=== PATIENT | female | born 1965 | race Caucasian/White ===

== ENCOUNTER 2017-04-04 09:47 | Emergency (ER) | payer MEDICARE, MEDICAID ==
--- NOTE | 2017-04-04 10:25 | ER Document Report ---
ED General - General Chief Complaint: Other Stated Complaint: NEEDS PORT FLUSHED Time Seen by Provider: 04/04/17 09:57 Mode of Arrival: Ambulatory Information source: Patient Notes: 51-year-old female who has a port for chronic migraines moved here in September has not had to use it since presents with concerns for wanting her port flushed. Patient states her primary care physician sent her in for it to be evaluated. Patient denies any complaints with it otherwise TRAVEL OUTSIDE OF THE [place] IN LAST 30 DAYS: No - HPI Onset: Just prior to arrival Onset/Duration: Sudden Quality of pain: No pain Severity: None Pain Level: Denies Associated symptoms: None Exacerbated by: Denies Relieved by: Denies Similar symptoms previously: No Recently seen / treated by doctor: No - Related Data Allergies/Adverse Reactions: No Known Allergies Allergy (Unverified 04/04/17 09:52) Past Medical History - Social History Smoking Status: Never Smoker Cigarette use (# per day): No Chew tobacco use (# tins/day): No Smoking Education Provided: No Family History: Reviewed & Not Pertinent Renal/ Medical History: Denies: Hx Peritoneal Dialysis Review of Systems - Review of Systems Notes: REVIEW OF SYSTEMS: CONSTITUTIONAL : Denies fever, chills, or sweats. Denies recent illness. EENT: Denies eye, ear, throat, or mouth pain or symptoms. Denies nasal or sinus congestion or discharge. Denies throat, tongue, or mouth swelling or difficulty swallowing. CARDIOVASCULAR: Denies chest pain. Denies palpitations or racing or irregular heart beat. Denies ankle edema. RESPIRATORY: Denies cough, cold, or chest congestion. Denies shortness of breath, difficulty breathing, or wheezing. GASTROINTESTINAL: Denies abdominal pain or distention. Denies nausea, vomiting , or diarrhea. Denies blood in vomitus, stools, or per rectum. Denies black, tarry stools. Denies constipation. GENITOURINARY: Denies difficulty urinating, painful urination, burning, frequency, blood in urine, or discharge. FEMALE GENITOURINARY: Denies vaginal bleeding, heavy or abnormal periods, irregular periods. Denies vaginal discharge or odor. MUSCULOSKELETAL: Denies back or neck pain or stiffness. Denies joint pain or swelling. SKIN: Denies rash, lesions or sores. HEMATOLOGIC : Denies easy bruising or bleeding. LYMPHATIC: Denies swollen, enlarged glands. NEUROLOGICAL: Denies confusion or altered mental status. Denies passing out or loss of consciousness. Denies dizziness or lightheadedness. Denies headache. Denies weakness or paralysis or loss of use of either side. Denies problems with gait or speech. Denies sensory loss, numbness, or tingling. Denies seizures. PSYCHIATRIC: Denies anxiety or stress. Denies depression, suicidal ideation, or homicidal ideation. ALL OTHER SYSTEMS REVIEWED AND NEGATIVE. PHYSICAL EXAMINATION: GENERAL: Well-appearing, well-nourished and in no acute distress. HEAD: Atraumatic, normocephalic. EYES: Pupils equal round and reactive to light, extraocular movements intact, conjunctiva are normal. ENT: Nares patent, oropharynx clear without exudates. Moist mucous membranes. NECK: Normal range of motion, supple without lymphadenopathy LUNGS: Breath sounds clear to auscultation bilaterally and equal. No wheezes rales or rhonchi. HEART: Regular rate and rhythm without murmurs ABDOMEN: Soft, nontender, nondistended abdomen. No guarding, no rebound. No masses appreciated. Female : deferred Musculoskeletal: Normal range of motion, no pitting or edema. No cyanosis. NEUROLOGICAL: Cranial nerves grossly intact. Normal speech, normal gait. Normal sensory, motor exams PSYCH: Normal mood, normal affect. SKIN: Warm, Dry, normal turgor, no rashes or lesions noted. Port was palpated, and will be accessed Dictation was performed using [employer] voice recognition software Physical Exam - Vital signs Vitals: Temp Pulse Resp BP Pulse Ox 98.6 F 102 H 16 100/57 L 99 04/04/17 09:53 04/04/17 09:53 04/04/17 09:53 04/04/17 09:53 04/04/17 09:53 Course - Re-evaluation Re-evalutation: 04/04/17 10:25 On my evaluation patient has no complaints, I will access port at this time and to flush it 04/04/17 14:23 Port was flushed with no difficulty heparin was placed. It appears patient was here with a family member who is also being seen and decided to check in as well After performing a Medical Screening Examination, I estimate there is LOW risk for OPEN FRACTURE, COMPARTMENT SYNDROME, TENDON RUPTURE, ACUTE NEUROVASCULAR INJURY, or RETAINED FOREIGN BODY, thus I consider the discharge disposition reasonable. Also, there is no evidence or peritonitis, sepsis, or toxicity. I have reevaluated this patient multiple times and no significant life threatening changes are noted. The patient and I have discussed the diagnosis and risks, and we agree with discharging home with close follow-up with the understanding that symptoms and presentations can change. We also discussed returning to the Emergency Department immediately if new or worsening symptoms occur. We have discussed the symptoms which are most concerning (e.g., changing or worsening pain, fever, numbness, weakness, cool or painful digits) that necessitate immediate return. - Vital Signs Vital signs: Temp Pulse Resp BP Pulse Ox 98.2 F 91 20 110/65 98 04/04/17 11:43 04/04/17 11:43 04/04/17 11:43 04/04/17 11:43 04/04/17 11:43 Discharge - Discharge Clinical Impression: Encounter for care related to vascular access port Condition: Stable Disposition: HOME, SELF-CARE Additional Instructions: Follow up with your physician tomorrow for further care or return to the ED IMMEDIATELY if symptoms worsen or new concerns occur. If you cannot afford to follow up with your primary care physician a list of low cost clinics have been provided at the end of your discharge papers as well. Referrals: MARIELLE MORALES MD [Primary Care Provider] - Follow up as needed
[2017-04-04 11:45] VITALS: BP 110/65
== END 2017-04-04 11:50 | disposition home or self-care (01) ==
LOC: ER 09:47
DX: Z43.8 Encounter for attention to other artificial openings (principal)
CPT/HCPCS: 36591; 99283

== ENCOUNTER 2017-04-10 16:50 | Emergency (ER) | payer MEDICARE, MEDICAID ==
[2017-04-10] MEDS ORDERED: METHYLPREDNISOLONE INJ 125 MG/2 ML SDV IV ONE (17:19)
--- NOTE | 2017-04-10 17:20 | ER Document Report ---
ED Medical Screen (RME) - General Chief Complaint: Head Injury Stated Complaint: FACIAL NUMBNESS Time Seen by Provider: 04/10/17 17:10 Mode of Arrival: Wheelchair Information source: Patient TRAVEL OUTSIDE OF THE [place] IN LAST 30 DAYS: No - HPI Patient complains to provider of: Left sided numbness Notes: 04/10/17 17:19 Patient is a 51-year-old female with a history of MS who presents to the emergency room complaining of left-sided numbness that started 3-4 hours prior to arrival in the emergency department, she reports facial numbness, with her friend telling her she had a facial droop, she reports decreased sensation on the left side of the face or left upper and lower extremities - Related Data Allergies/Adverse Reactions: No Known Allergies Allergy (Verified 04/10/17 17:03) Past Medical History - Social History Chew tobacco use (# tins/day): No Frequency of alcohol use: None Drug Abuse: None Neurological Medical History: Reports: Hx Migraine Renal/ Medical History: Denies: Hx Peritoneal Dialysis Surgical Hx: Negative - Immunizations Hx Diphtheria, Pertussis, Tetanus Vaccination: No History of Influenza Vaccine for 04/2017 - 09/2017 Season: No Physical Exam - Vital signs Vitals: Temp Pulse Resp BP Pulse Ox 98.3 F 97 16 110/76 97 04/10/17 17:03 04/10/17 17:03 04/10/17 17:03 04/10/17 17:03 04/10/17 17:03 Course - Vital Signs Vital signs: Temp Pulse Resp BP Pulse Ox 98.3 F 97 16 110/76 97 04/10/17 17:03 04/10/17 17:03 04/10/17 17:03 04/10/17 17:03 04/10/17 17:03
--- NOTE | 2017-04-10 18:08 | RADIOLOGY REPORT (SQ) ---
EXAM DESCRIPTION: CHEST SINGLE VIEW COMPLETED DATE/TIME: 04/10/2017 5:34 pm REASON FOR STUDY: left sided numbness COMPARISON: None. EXAM PARAMETERS: NUMBER OF VIEWS: One view. TECHNIQUE: Single frontal radiographic view of the chest acquired. RADIATION DOSE: NA LIMITATIONS: None. FINDINGS: LUNGS AND PLEURA: No opacities, masses or pneumothorax. No pleural effusion. MEDIASTINUM AND HILAR STRUCTURES: No masses. Contour normal. HEART AND VASCULAR STRUCTURES: Heart normal in size. Normal vasculature. BONES: No acute findings. HARDWARE: Injection port on the left. OTHER: No other significant finding. IMPRESSION: NO ACUTE RADIOGRAPHIC FINDING IN THE CHEST. TECHNICAL DOCUMENTATION: JOB ID: [id number]
--- NOTE | 2017-04-10 18:12 | RADIOLOGY REPORT (SQ) ---
EXAM DESCRIPTION: CT HEAD WITHOUT COMPLETED DATE/TIME: 04/10/2017 5:45 pm REASON FOR STUDY: left sided numbness COMPARISON: None. TECHNIQUE: Axial images acquired through the brain without intravenous contrast. Images reviewed wi th bone, brain and subdural windows. Images stored on PACS. All CT scanners at this facility use dose modulation, iterative reconstruction, and/or weight based d osing when appropriate to reduce radiation dose to as low as reasonably achievable (ALARA). [facility]: Dose Right [facility]: CareDose [facility]: Dose Right [facility]: Teradose 4D [facility]: [employer] RADIATION DOSE: Up-to-date CT equipment and radiation dose reduction techniques were employed. CTDIv ol: 64.6 mGy. DLP: 1034 mGy-cm. mGy. LIMITATIONS: None. FINDINGS: VENTRICLES: Normal size and contour. CEREBRUM: No masses. No hemorrhage. No midline shift. No evidence for acute infarction. Normal gra y/white matter differentiation. No areas of low density in the white matter. CEREBELLUM: No masses. No hemorrhage. No alteration of density. No evidence for acute infarction. EXTRAAXIAL SPACES: No fluid collections. No masses. ORBITS AND GLOBE: No intra- or extraconal masses. Normal contour of globe without masses. CALVARIUM: No fracture. PARANASAL SINUSES: No fluid or mucosal thickening. SOFT TISSUES: No mass or hematoma. OTHER: No other significant finding. IMPRESSION: NORMAL BRAIN CT WITHOUT CONTRAST. EVIDENCE OF ACUTE STROKE: NO. COMMENT: Quality ID # [id number]: Final reports with documentation of one or more dose reduction techniques (e.g., Automated exposure control, adjustment of the mA and/or kV according to patient size, use of iterative reconstruction technique) TECHNICAL DOCUMENTATION: JOB ID: [id number]- All Rights Reserved
[2017-04-10] MEDS ORDERED: PREDNISONE 20 MG TABLET PO ONE (20:27)
--- NOTE | 2017-04-10 20:32 | ER Document Report ---
ED General - General Chief Complaint: Head Injury Stated Complaint: FACIAL NUMBNESS Time Seen by Provider: 04/10/17 17:10 Mode of Arrival: Wheelchair Notes: Patient is a 51-year-old female with a past medical history of multiple sclerosis who presents with 6-7 hours of left-sided weakness and paresthesias. Patient states that this apparently started after she "bumped her head". States that since that time she was felt "tingly" on the left side of her body with associated mild weakness of her upper and lower extremity. Her roommate apparently noted a facial droop earlier today which is now apparently resolved. Patient states that she has had a history of similar symptoms in the past in the setting of MS flares. No recent medication changes. She has not seen her neurologist regarding today's concerns. Nothing improves or worsens her symptoms. She denies any recent infectious symptoms, chest pain, vomiting, headache or fever. TRAVEL OUTSIDE OF THE [place] IN LAST 30 DAYS: No - Related Data Allergies/Adverse Reactions: No Known Allergies Allergy (Verified 04/10/17 17:03) Past Medical History - General Information source: Patient - Social History Smoking Status: Never Smoker Chew tobacco use (# tins/day): No Frequency of alcohol use: None Drug Abuse: None Lives with: Friend Family History: Reviewed & Not Pertinent Neurological Medical History: Reports: Hx Migraine Renal/ Medical History: Denies: Hx Peritoneal Dialysis Surgical Hx: Negative - Immunizations Hx Diphtheria, Pertussis, Tetanus Vaccination: No Review of Systems - Review of Systems Notes: Constitutional: Negative for fever. HENT: Negative for sore throat. Eyes: Negative for visual changes. Cardiovascular: Negative for chest pain. Respiratory: Negative for shortness of breath. Gastrointestinal: Negative for abdominal pain, vomiting or diarrhea. Genitourinary: Negative for dysuria. Musculoskeletal: Negative for back pain. Skin: Negative for rash. Neurological: Negative for headaches, positive for weakness and numbness 10 point ROS negative except as marked above and in HPI. Physical Exam - Vital signs Vitals: Temp Pulse Resp BP Pulse Ox 98.3 F 97 16 110/76 97 04/10/17 17:03 04/10/17 17:03 04/10/17 17:03 04/10/17 17:03 04/10/17 17:03 Interpretation: Normal Notes: PHYSICAL EXAMINATION: GENERAL: Well-appearing, well-nourished and in no acute distress. HEAD: Atraumatic, normocephalic. EYES: Pupils equal round and reactive to light, extraocular movements intact, sclera anicteric, conjunctiva are normal. ENT: nares patent, oropharynx clear without exudates. Moist mucous membranes. NECK: Normal range of motion, supple without lymphadenopathy LUNGS: Breath sounds clear to auscultation bilaterally and equal. No wheezes rales or rhonchi. HEART: Regular rate and rhythm without murmurs ABDOMEN: Soft, nontender, normoactive bowel sounds. No guarding, no rebound. No masses appreciated. EXTREMITIES: Normal range of motion, no pitting or edema. No cyanosis. NEUROLOGICAL: Face symmetric. Tongue protrudes midline. Extraocular motions intact. Pupils are 2 mm and equally reactive. Patient reports decreased sensation on the entirety of the left half of the face. Normal speech, normal gait. 5 out of 5 strength in both the distal and proximal upper and lower extremities bilaterally after encouragement. Sensation is grossly intact throughout the bilateral upper and lower extremities. Finger to nose testing normal. Pronator drift normal. PSYCH: Normal mood, normal affect. SKIN: Warm, Dry, normal turgor, no rashes or lesions noted. Course - Re-evaluation Re-evalutation: 04/10/17 20:27 Patient presents with signs and symptoms most consistent with a possible mild MS flare. On examination patient has no focal neurologic deficits other than to state that she has decreased sensation in the left side of the face and the trigeminal nerve distribution. She has no decreased sensation on point testing and 2 point discrimination in her lower and upper extremities bilaterally. Patient seems to have variable strength differences in her left upper and lower extremities although with appropriate effort she does achieve full 5 out of 5 strength in the biceps and triceps bilaterally as well as distal and proximally bilateral lower extremity's. She is able to ambulate without ataxia or falling. The remainder of her neurologic exam is unremarkable. CT imaging of the head is noted to be unremarkable. I have a very low clinical suspicion for an acute CVA given patient's clinical history and rapid improvement of her symptoms. She states earlier today she apparently did have a possible facial droop although this is not present at time of assessment. Murmurs patient states that she felt that her symptoms on the left were actually worse prior to coming to the hospital and have now mostly resolved. This would also be consistent with acute CVA and alternative diagnostic consideration could be a TIA although this would be inconsistent with her ongoing facial nerve distribution sensory loss and normalization of her upper and lower extremity symptoms. I suspect more likely patient is having an MS flare. She is not a TPA candidate regardless given that she presents after the window for TPA, does not have a has had improvement of her neurologic symptoms since onset, and has a history of an identical presentation in the past as part of her multiple sclerosis. Will start on a course of steroids and recommend close outpatient follow-up with her neurologist. At this time will discharge with return precautions and follow-up recommendations. Verbal discharge instructions given a the bedside and opportunity for questions given. Medication warnings reviewed. Patient is in agreement with this plan and has verbalized understanding of return precautions and the need for primary care follow-up in the next 24-72 hours. - Vital Signs Vital signs: Temp Pulse Resp BP Pulse Ox 97.7 F 94 18 112/81 98 04/10/17 20:51 04/10/17 20:51 04/10/17 20:51 04/10/17 20:51 04/10/17 20:51 - Laboratory Result Diagrams: 04/10/17 20:15 04/10/17 20:15 Laboratory results interpreted by me: 04/10/17 04/10/17 20:15 20:15 RDW 14.6 H Lymphocytes % 7.9 L Monocytes % 13.7 H Potassium 3.1 L Alkaline Phosphatase 132 H Total Protein 6.2 L - Diagnostic Test Radiology reviewed: Image reviewed, Reports reviewed Radiology results interpreted by me: 04/10/17 20:30 CT head: No acute intracranial bleed or mass - EKG Interpretation by Me Additional EKG results interpreted by me: 04/10/17 20:30 Normal sinus rhythm. Rate 95. No ST elevations or depressions. QTC is 483. Discharge - Discharge Clinical Impression: Paresthesias, Multiple sclerosis Condition: Good Disposition: HOME, SELF-CARE Additional Instructions: Your symptoms today appear most likely to be related to a flare of your multiple sclerosis. Please take the steroids as prescribed. Contact your neurologist tomorrow for an urgent appointment. Return to the emergency department immediately if you have worsening of your symptoms, pass out, develop chest pain, or any other symptoms that are worrisome to you. Prescriptions: Prednisone [Deltasone 20 mg Tablet] 3 tab PO DAILY 7 Days tablet Referrals: TYRESE TRACY, CLINICAL TECHNICIAN [Primary Care Provider] - Follow up as needed
[2017-04-10 20:34] LABS: PROTHROMBIN TIME 13.3 SEC (11.4-15.4)
[2017-04-10 20:35] LABS: PARTIAL THROMBOPLASTIN TIME 35.5 SEC (23.5-35.8)
[2017-04-10 20:40] LABS: ABSOLUTE EOSINOPHILS # (AUTO) 0.3 10^3/uL (0.0-0.6); ABSOLUTE LYMPHOCYTES (AUTO) 0.6 10^3/uL (0.5-4.7); ABSOLUTE NEUT (AUTO) 5.2 10^3/uL (1.7-8.2); BASOPHILS % (AUTO) 0.3 % (0-2); EOSINOPHILS % (AUTO) 3.6 % (0-6); HEMATOCRIT 37.8 % (36.0-47.0); HEMOGLOBIN 12.9 g/dL (12.0-15.5); HGB HCT DIFFERENCE 0.9; LYMPHOCYTES % (AUTO) 7.9 % (13-45); MEAN CORPUSCULAR HEMOGLOBIN 28.1 pg (27.0-33.4); MEAN CORPUSCULAR HGB CONC 34.2 g/dL (32.0-36.0); MEAN CORPUSCULAR VOLUME 82 fl (80-97); MONOCYTES % (AUTO) 13.7 % (3-13); RED CELL DISTRIBUTION WIDTH 14.6 % (11.5-14.0); SEGMENTED NEUTROPHILS % (AUTO) 74.5 % (42-78)
[2017-04-10 20:54] VITALS: BP 112/81
[2017-04-10 20:56] LABS: ALANINE AMINOTRANSFERASE 45 U/L (9-52); ALBUMIN 3.7 g/dL (3.5-5.0); ALKALINE PHOSPHATASE 132 U/L (38-126); ANION GAP 10 (5-19); ASPARTATE AMINO TRANSFERASE 28 U/L (14-36); BILIRUBIN,DIRECT 0.4 mg/dL (0.0-0.4); BILIRUBIN,TOTAL 0.6 mg/dL (0.2-1.3); BLOOD UREA NITROGEN 12 mg/dL (7-20); CALCIUM 8.8 mg/dL (8.4-10.2); CARBON DIOXIDE 26 mmol/L (22-30); CHLORIDE 103 mmol/L (98-107); CREATINE KINASE 48 U/L (30-135); CREATININE RESULT 0.77 mg/dL (0.52-1.25); GLUCOSE 75 mg/dL (75-110); SODIUM 138.7 mmol/L (137-145); TOTAL PROTEIN 6.2 g/dL (6.3-8.2)
[2017-04-10 21:06] LABS: CREATINE KINASE MB 0.74 ng/mL (<4.55); POTASSIUM 3.1 mmol/L (3.6-5.0)
[2017-04-10 21:07] LABS: TROPONIN I < 0.012 ng/mL
--- NOTE | 2017-04-11 09:15 | EKG REPORT ---
SEVERITY:- OTHERWISE NORMAL ECG - SINUS RHYTHM BORDERLINE LEFT AXIS DEVIATION : Confirmed by: Ellen Mcdaniels MD 11-Apr-2017 09:14:37
== END 2017-04-10 21:21 | disposition home or self-care (01) ==
LOC: ER 16:50
DX: G35 Multiple sclerosis (principal); R20.2 Paresthesia of skin; R53.1 Weakness
CPT/HCPCS: 93005; 36591; 99285; 36415; 82553; 82550; 85025; 85610; 85730; 80053; 84484; 71010; 70450; 93010; A9270; J7512

== ENCOUNTER 2017-04-18 08:51 | Emergency (ER) | payer MEDICARE, MEDICAID ==
--- NOTE | 2017-04-18 10:02 | ER Document Report ---
ED General - General Chief Complaint: Fall Stated Complaint: FALL NECK PAIN Time Seen by Provider: 04/18/17 09:46 TRAVEL OUTSIDE OF THE [place] IN LAST 30 DAYS: No - HPI Notes: Patient is a 51-year-old female with a history of MS and Diabetes who presents to the ED status post fall prior to arrival. Patient states that her legs became a little shaky and she fell on her butt and that hit her head off of the tile floor. Patient states that this has happened in the past because of her MS and peripheral neuropathy. She has leg shakes almost frequently throughout the week "for a long time" which has been evaluated in the past per patient/ family. Patient states that otherwise she feels well. She denies any loss of consciousness, nausea/vomiting. Patient is currently complaining of a headache and neck pain. Patient states that she was eating and drinking without difficulties as well as urinating and having normal bowel movements prior. No other concerns or complaints. Denies any h/o CAD, OH, CVA, TIA, Seizures, PE, DVT, CA. Denies any fever, changes in behavior/vision/speech/mentation/hearing , URI, sore throat, chest pain, palpitations, syncope, cough, shortness of breath, wheeze, dyspnea, abdominal pain, nausea/vomiting/diarrhea, urinary retention, dysuria, hematuria, loss of control of bowel or bladder, numbness/ tingling, saddle anesthesia, muscle paralysis/weakness, or rash. Denies drug use. - Related Data Allergies/Adverse Reactions: No Known Allergies Allergy (Verified 04/10/17 17:03) Past Medical History - Social History Smoking Status: Never Smoker Chew tobacco use (# tins/day): No Frequency of alcohol use: None Drug Abuse: Bath salts Family History: Reviewed & Not Pertinent Neurological Medical History: Reports: Hx Migraine Endocrine Medical History: Reports: Hx Diabetes Mellitus Type 2 Renal/ Medical History: Denies: Hx Peritoneal Dialysis - Immunizations Hx Diphtheria, Pertussis, Tetanus Vaccination: No Review of Systems - Review of Systems Notes: REVIEW OF SYSTEMS: CONSTITUTIONAL : Denies fever, chills, or sweats. Denies recent illness. EENT: Denies eye, ear, throat, or mouth pain or symptoms. Denies nasal or sinus congestion or discharge. Denies throat, tongue, or mouth swelling or difficulty swallowing. CARDIOVASCULAR: Denies chest pain. Denies palpitations or racing or irregular heart beat. Denies ankle edema. RESPIRATORY: Denies cough, cold, or chest congestion. Denies shortness of breath, difficulty breathing, or wheezing. GASTROINTESTINAL: Denies abdominal pain or distention. Denies nausea, vomiting , or diarrhea. Denies blood in vomitus, stools, or per rectum. Denies black, tarry stools. Denies constipation. GENITOURINARY: Denies difficulty urinating, painful urination, burning, frequency, blood in urine, or discharge. MUSCULOSKELETAL: see hpi SKIN: Denies rash, lesions or sores. NEUROLOGICAL: see hpi. Denies confusion or altered mental status. Denies passing out or loss of consciousness. Denies dizziness or lightheadedness. Denies weakness or paralysis or loss of use of either side. Denies problems with gait or speech. Denies sensory loss, numbness, or tingling. Denies seizures. PSYCHIATRIC: Denies anxiety or stress. Denies depression, suicidal ideation, or homicidal ideation. ALL OTHER SYSTEMS REVIEWED AND NEGATIVE. Dictation was performed using [employer] voice recognition software Physical Exam - Vital signs Vitals: Temp Pulse Resp BP Pulse Ox 97.7 F 88 18 114/67 97 04/18/17 08:59 04/18/17 08:59 04/18/17 08:59 04/18/17 08:59 04/18/17 08:59 Notes: PHYSICAL EXAMINATION: GENERAL: Well-appearing, well-nourished and in no acute distress. A&Ox4 HEAD: Atraumatic, normocephalic. Non-tender. No baxter sign EYES: Pupils equal round and reactive to light, extraocular movements intact, sclera anicteric, conjunctiva are normal. No raccoon eyes/entrapment ENT: EAC clear b/l. TM's intact b/l without erythema, fluid, or perforation. Nares patent and without discharge. oropharynx clear without exudates. No tonsilar hypertrophy or erythema. Moist mucous membranes. No sinus tenderness. No hemotympanum/CSF discharge. NECK: Normal range of motion, supple without lymphadenopathy. In C-collar. + midline tenderness, cannot r/o with NEXUS criteria. Chest: No flail chest. equal rise/fall. Non-tender LUNGS: Breath sounds clear to auscultation bilaterally and equal. No wheezes rales or rhonchi. HEART: Regular rate and rhythm without murmurs, rubs, gallops. ABDOMEN: Soft, nontender, nondistended abdomen. No guarding, no rebound. No masses appreciated. Normal bowel sounds present. No CVA tenderness bilaterally. Musculoskeletal: Ext b/l: FROM to passive/active. Strength 5+/5. No deficits noted. No bony tenderness of extremities. No focal deficits noted. Back: FROM to passive/active. Strength 5+/5. No vertebral point tenderness, stepoffs, or deformities. No other bony tenderness or ecchymosis. SLR negative b/l. Extremities: No cyanosis, clubbing, or edema b/l. Peripheral pulses 2+. Capillary refill less than 2 seconds. NEUROLOGICAL: NIH 0. MMSE intact. Cranial nerves grossly intact. Normal speech. Normal sensory, motor exams. Reflexes 2+ b/l. PAYAM's negative. Pronator drift negative. Heel/romero, finger/nose wnl. PSYCH: Normal mood, normal affect. SKIN: Warm, Dry, normal turgor, no rashes or lesions noted. Course - Re-evaluation Re-evalutation: 04/18/17 11:13 CT head/neck negative for fx/dislocation/bleed EKG obtained Pt feeling well aside from headache and wanting medication for the headache. Reviewed that we don't have to access her port and draw blood at this time as I have a low suspicion for any large abnormalities in her basic blood order(s). Family/Pt states that they want the basic blood drawn and that she has never had issues with her port. They verbalized understanding of the risks/benefits and want the blood work drawn. (2 failed attempts by nursing for normal venous stick). UA pending as well Toradol 30, Benadryl 25, and Compazine 10mg ordered for RAYMUNDO. Pt has bull driver and assistance back to her home/bed to rest thereafter. 04/18/17 13:49 Urine obtained-took a while. Orthostatics + and fluids started RAYMUNDO resolved. Pt ate lunch and is tolerating PO w/o difficulty 04/18/17 15:21 Accucheck 111 Orthostatic recheck now wnl. Patient is an afebrile, well-hydrated, 51-year-old female who presents the ED with cervical strain s/p fall. Vitals are stable. PE is otherwise unremarkable for any focal neurological deficits. CT of the head and neck was unremarkable. EKG unremarkable. CBC, CMP, urinalysis was unremarkable aside from mild hypoglycemia that has since been corrected status post lunch and fluids. Orthostatics are now within normal limits s/p fluids. No new concerns or complaints. Tylenol was given p.o. prior to discharge. Low suspicion for any acute glaucoma, temporal arteritis, meningitis, intracranial hemorrhage, ischemic stroke, or fracture at this time. Patient is aware that her condition can change from initial presentation and that she needs to monitor symptoms closely for any acute changes. Continue monitoring blood pressure at home and take all medications as directed. Recheck with your PCM in 2-3 days. Return to the ED with any worsening/concerning symptoms otherwise as reviewed discharge. Patient is in agreement. No new concerns or complaints. - Vital Signs Vital signs: Temp Pulse Resp BP Pulse Ox 97.7 F 93 18 101/57 L 97 04/18/17 08:59 04/18/17 13:31 04/18/17 08:59 04/18/17 13:31 04/18/17 08:59 - Laboratory Result Diagrams: 04/18/17 11:30 04/18/17 11:30 Laboratory results interpreted by me: 04/18/17 04/18/17 04/18/17 11:30 11:30 13:34 WBC 14.0 H Hgb 11.9 L Hct 35.2 L RDW 15.2 H Seg Neuts % (Manual) 90 H Lymphocytes % (Manual) 5 L Abs Neuts (Manual) 12.6 H Potassium 3.3 L Glucose 61 L Total Protein 5.7 L Albumin 3.4 L Urine Glucose (UA) >=500 H Discharge - Discharge Clinical Impression: Cervical strain Qualifiers: Encounter type: initial encounter Qualified Code(s): S16.1XXA - Strain of muscle, fascia and tendon at neck level, initial encounter Condition: Stable Disposition: HOME, SELF-CARE Instructions: Headache ([facility]), Head Injury Precautions ([facility]), Neck Injury ( Cervical Strain) ([facility]) Additional Instructions: Rest, Ice Tylenol/ibuprofen as needed Light stretches daily Strength exercises as able Moist heat and massage may help F/u with your PCP in 2-3 days for a recheck Return to the ED with any worsening symptoms and/or development of fever, headache, chest pain, palpitations, syncope, shortness of breath, trouble breathing, abdominal pain, n/v/d, blood in stool/urine, loss of control of bowel /bladder, urinary retention, muscle weakness/paralysis, saddle anesthesia, numbness/tingling, or other worsening symptoms that are concerning to you. Referrals: TYRESE TRACY FNP [Primary Care Provider] - 04/20/17 [facility] [Provider Group] - Follow up as needed
--- NOTE | 2017-04-18 10:51 | RADIOLOGY REPORT (SQ) ---
EXAM DESCRIPTION: CT HEAD WITHOUT COMPLETED DATE/TIME: 04/18/2017 10:26 am REASON FOR STUDY: fall, headache, neck pain COMPARISON: None. TECHNIQUE: Axial images acquired through the brain without intravenous contrast. Images reviewed wi th bone, brain and subdural windows. Images stored on PACS. All CT scanners at this facility use dose modulation, iterative reconstruction, and/or weight based d osing when appropriate to reduce radiation dose to as low as reasonably achievable (ALARA). [facility]: Dose Right [facility]: CareDose [facility]: Dose Right [facility]: Teradose 4D [facility]: [employer] RADIATION DOSE: Up-to-date CT equipment and radiation dose reduction techniques were employed. CTDIv ol: 64.6 mGy. DLP: 1163 mGy-cm. mGy. LIMITATIONS: None. FINDINGS: VENTRICLES: Normal size and contour. CEREBRUM: No masses. No hemorrhage. No midline shift. No evidence for acute infarction. Normal gra y/white matter differentiation. No areas of low density in the white matter. CEREBELLUM: No masses. No hemorrhage. No alteration of density. No evidence for acute infarction. EXTRAAXIAL SPACES: No fluid collections. No masses. ORBITS AND GLOBE: No intra- or extraconal masses. Normal contour of globe without masses. CALVARIUM: No fracture. PARANASAL SINUSES: No fluid or mucosal thickening. SOFT TISSUES: No mass or hematoma. OTHER: No other significant finding. IMPRESSION: NORMAL BRAIN CT WITHOUT CONTRAST. EVIDENCE OF ACUTE STROKE: NO. COMMENT: Quality ID # [id number]: Final reports with documentation of one or more dose reduction techniques (e.g., Automated exposure control, adjustment of the mA and/or kV according to patient size, use of iterative reconstruction technique) TECHNICAL DOCUMENTATION: JOB ID: [id number]- All Rights Reserved
--- NOTE | 2017-04-18 10:56 | RADIOLOGY REPORT (SQ) ---
EXAM DESCRIPTION: CT CERVICAL SPINE WITHOUT COMPLETED DATE/TIME: 04/18/2017 10:26 am REASON FOR STUDY: fall, headache, neck pain COMPARISON: None. TECHNIQUE: Axial images acquired through the cervical spine without intravenous contrast. Images re viewed with lung, soft tissue and bone windows. Reconstructed coronal and sagittal MPR images review ed. Images stored on PACS. All CT scanners at this facility use dose modulation, iterative reconstruction, and/or weight based d osing when appropriate to reduce radiation dose to as low as reasonably achievable (ALARA). [facility]: Dose Right [facility]: CareDose [facility]: Dose Right [facility]: Teradose 4D [facility]: [employer] RADIATION DOSE: Up-to-date CT equipment and radiation dose reduction techniques were employed. CTDIv ol: 23.4 mGy. DLP: 500 mGy-cm. mGy. LIMITATIONS: None. FINDINGS: ALIGNMENT: Anatomic. MINERALIZATION: Normal. VERTEBRAL BODIES: No fractures or dislocation. DISCS: Disc spaces are narrowed at C4-5 and C5-6. Anterior osteophytes are present. Posterior osteo phytes are present C5-6. FACETS, LATERAL MASSES, POSTERIOR ELEMENTS: Hypertrophic facet changes are present from C2-C6 more on the left than right. HARDWARE: None in the spine. VISUALIZED RIBS: No fractures. LUNG APICES AND SOFT TISSUES: No significant or acute findings. OTHER: No other significant finding. IMPRESSION: Degenerative disc disease, spondylosis, facet arthropathy with no acute abnormality. TECHNICAL DOCUMENTATION: JOB ID: [id number] Quality ID # [id number]: Final reports with documentation of one or more dose reduction techniques (e.g., Au tomated exposure control, adjustment of the mA and/or kV according to patient size, use of iterative reconstruction technique) 2010 [employer]- All Rights Reserved
[2017-04-18] MEDS ORDERED: KETOROLAC TROMETHAMINE INJ/PF 30 MG/1 ML SDV IV ONE (11:03)
[2017-04-18] MEDS ORDERED: PROCHLORPERAZINE EDISYLATE INJ 10 MG/2 ML VIAL IV ONE (11:12)
[2017-04-18] MEDS ORDERED: DIPHENHYDRAMINE HCL 50 MG/ML VIAL IV ONE (11:12)
[2017-04-18 11:52] LABS: HEMATOCRIT 35.2 % (36.0-47.0); HEMOGLOBIN 11.9 g/dL (12.0-15.5); HGB HCT DIFFERENCE 0.5; MEAN CORPUSCULAR HEMOGLOBIN 27.9 pg (27.0-33.4); MEAN CORPUSCULAR HGB CONC 33.8 g/dL (32.0-36.0); MEAN CORPUSCULAR VOLUME 82 fl (80-97); RED BLOOD COUNT 4.27 10^6/uL (3.72-5.28); RED CELL DISTRIBUTION WIDTH 15.2 % (11.5-14.0)
[2017-04-18 12:14] LABS: BASOPHILS % (MANUAL) 0 % (0-2); EOSINOPHILS % (MANUAL) 0 % (0-6); LYMPHOCYTES % (MANUAL) 5 % (13-45); TOTAL CELLS COUNTED 100
[2017-04-18 12:15] LABS: ANISOCYTOSIS SLIGHT; OVALOCYTES 1+; POIKILOCYTOSIS 1+
[2017-04-18 12:19] LABS: ALANINE AMINOTRANSFERASE 40 U/L (9-52); ALBUMIN 3.4 g/dL (3.5-5.0); ALKALINE PHOSPHATASE 100 U/L (38-126); ANION GAP 10 (5-19); ASPARTATE AMINO TRANSFERASE 21 U/L (14-36); BILIRUBIN,DIRECT 0.4 mg/dL (0.0-0.4); BILIRUBIN,TOTAL 0.5 mg/dL (0.2-1.3); BLOOD UREA NITROGEN 16 mg/dL (7-20); CALCIUM 8.7 mg/dL (8.4-10.2); CARBON DIOXIDE 27 mmol/L (22-30); CHLORIDE 103 mmol/L (98-107); CREATININE RESULT 0.67 mg/dL (0.52-1.25); GLUCOSE 61 mg/dL (75-110); POTASSIUM 3.3 mmol/L (3.6-5.0); SODIUM 140.2 mmol/L (137-145); TOTAL PROTEIN 5.7 g/dL (6.3-8.2)
[2017-04-18] MEDS: NORMAL SALINE 1000 ML 1,000 ML IV PRN ×2 (13:37→15:18)
[2017-04-18 14:19] LABS: APPEARANCE,URINE SLIGHTLY-CLOUDY; BILIRUBIN,URINE NEGATIVE (NEGATIVE); GLUCOSE, URINE >=500 mg/dL (NEGATIVE); KETONES,URINE NEGATIVE (NEGATIVE); LEUKOCYTE ESTERASE,URINE NEGATIVE (NEGATIVE); NITRITE,URINE NEGATIVE (NEGATIVE); PROTEIN,URINE NEGATIVE (NEGATIVE); URINE SPECIFIC GRAVITY 1.027; UROBILINOGEN,URINE NEGATIVE mg/dL (<2.0)
[2017-04-18] MEDS ORDERED: ACETAMINOPHEN 325 MG TABLET PO ONE (15:25)
[2017-04-18 16:09] VITALS: BP 97/71
--- NOTE | 2017-04-18 19:57 | EKG REPORT ---
SEVERITY:- OTHERWISE NORMAL ECG - SINUS RHYTHM BORDERLINE LEFT AXIS DEVIATION : Confirmed by: Connor Rich MD 18-Apr-2017 19:56:12
== END 2017-04-18 16:09 | disposition home or self-care (01) ==
LOC: ER 08:51
DX: S16.1XXA Strain of muscle, fascia and tendon at neck level, initial encounter (principal); W18.39XA Other fall on same level, initial encounter; Y93.89 Activity, other specified; E11.40 Type 2 diabetes mellitus with diabetic neuropathy, unspecified; E11.649 Type 2 diabetes mellitus with hypoglycemia without coma; R51 Headache; M54.2 Cervicalgia; G35 Multiple sclerosis
CPT/HCPCS: 93005; 36591; 99284; 96361; 96374; 96375; 36415; 82962; 85025; 80053; 81001; 70450; 72125; 93010; A9270; J1200; J1885; J0780; J7030

== ENCOUNTER 2017-06-29 14:09 | Emergency (ER) | payer MEDICARE, MEDICAID ==
[2017-06-29] MEDS ORDERED: NORMAL SALINE 1000 ML 1,000 ML IV ONE (14:29)
--- NOTE | 2017-06-29 14:39 | ER Document Report ---
ED General - General Chief Complaint: Weakness Stated Complaint: SYNCOPE Time Seen by Provider: 06/29/17 14:21 Notes: The patient is a 51-year-old female, past medical history MS, chronic back pain , presents with 1 day of feeling tired after she started taking [place] and Percocet. Patient says she also felt slightly lightheaded, but this is a frequent occurrence because she said the medications that she is on. Patient denies focal weakness, numbness, tingling, headache, chest pain, shortness of breath, full loss of consciousness, no back pain, change in bowel or bladder, fevers, rash or neck stiffness. TRAVEL OUTSIDE OF THE [place] IN LAST 30 DAYS: No - Related Data Allergies/Adverse Reactions: No Known Allergies Allergy (Verified 05/13/17 12:13) Past Medical History - General Information source: Patient - Social History Smoking Status: Unknown if Ever Smoked Family History: Reviewed & Not Pertinent Neurological Medical History: Reports: Hx Migraine Endocrine Medical History: Reports: Hx Diabetes Mellitus Type 2 Renal/ Medical History: Denies: Hx Peritoneal Dialysis Past Surgical History: Reports: Hx Abdominal Surgery - gastric bypass, Hx Cholecystectomy, Hx Hysterectomy - Immunizations Hx Diphtheria, Pertussis, Tetanus Vaccination: No Review of Systems - Review of Systems Notes: REVIEW OF SYSTEMS: CONSTITUTIONAL: -fevers, -chills EENT: -eye pain, -difficulty swallowing, -nasal congestion CARDIOVASCULAR: -chest pain, -syncope. RESPIRATORY: +cough, -SOB GASTROINTESTINAL: -abdominal pain, -nausea, -vomiting, -diarrhea GENITOURINARY: -dysuria, -hematuria MUSCULOSKELETAL: -back pain, -neck pain SKIN: -rash or skin lesions. HEMATOLOGIC: -easy bruising or bleeding. LYMPHATIC: -swollen, enlarged glands. NEUROLOGICAL: -altered mental status or loss of consciousness, -headache, - neurologic symptoms, +tiredness PSYCHIATRIC: -anxiety, -depression. ALL OTHER SYSTEMS REVIEWED AND NEGATIVE. Physical Exam - Vital signs Vitals: Resp Pulse Ox 26 H 95 06/29/17 15:35 06/29/17 15:35 - Notes Notes: PHYSICAL EXAMINATION: GENERAL: Well-appearing, well-nourished and in no acute distress. HEAD: Atraumatic, normocephalic. EYES: Pupils equal round and reactive to light, extraocular movements intact, sclera anicteric, conjunctiva are normal. ENT: nares patent, oropharynx clear without exudates. Moist mucous membranes. NECK: Normal range of motion, supple without lymphadenopathy LUNGS: No respiratory distress. Crackles in right lung. HEART: Regular rate and rhythm without murmurs ABDOMEN: Soft, nontender, normoactive bowel sounds. No guarding, no rebound. No masses appreciated. EXTREMITIES: Normal range of motion, no pitting or edema. No cyanosis. NEUROLOGICAL: Cranial nerves grossly intact. Normal speech, normal gait. Normal sensory and motor exams. PSYCH: Normal mood, normal affect. SKIN: Warm, Dry, normal turgor, no rashes or lesions noted. Course - Re-evaluation Re-evalutation: After IV fluids, patient feels much better and her vital signs are completely normal. She is completely asymptomatic. Her chest x-ray shows a right sided pneumonia urine shows a possible UTI. Patient also has a leukocytosis with bandemia, but no fevers or respiratory distress. Will begin doxycycline to help with both the pneumonia and possible UTI. Offered patient admission, but she said that she feels well enough to go home. Given very strict return precautions and she understands. - Vital Signs Vital signs: Temp Pulse Resp BP Pulse Ox 15 97/71 L 95 06/29/17 16:01 06/29/17 16:00 06/29/17 16:01 - Laboratory Result Diagrams: 06/29/17 15:36 06/29/17 15:36 Laboratory results interpreted by me: 06/29/17 06/29/17 06/29/17 15:36 15:36 17:40 WBC 19.1 H MCH 26.2 L RDW 15.3 H Seg Neuts % (Manual) 80 H Band Neutrophils % 8 H Lymphocytes % (Manual) 6 L Abs Neuts (Manual) 16.8 H Potassium 3.2 L AST 46 H Total Protein 6.1 L Urine Glucose (UA) >=500 H Urine Nitrite POSITIVE H - Diagnostic Test Radiology reviewed: Image reviewed, Reports reviewed Radiology results interpreted by me: CXR: Right upper and lower infiltrates. - EKG Interpretation by Me EKG shows normal: Sinus rhythm, [place], Intervals, QRS Complexes, ST-T Waves Rate: Tachycardia Discharge - Discharge Clinical Impression: UTI (urinary tract infection) Qualifiers: Urinary tract infection type: site unspecified Hematuria presence: with hematuria Qualified Code(s): N39.0 - Urinary tract infection, site not specified Leukocytosis Qualifiers: Leukocytosis type: unspecified Qualified Code(s): D72.829 - Elevated white blood cell count, unspecified Pneumonia Qualifiers: Pneumonia type: due to unspecified organism Laterality: right Lung location: unspecified part of lung Qualified Code(s): J18.9 - Pneumonia, unspecified organism Condition: Stable Disposition: HOME, SELF-CARE Additional Instructions: URINARY TRACT INFECTION: Your evaluation indicates that you have a urinary tract infection. This is due to germs growing in the bladder. This is a common problem. This infection usually responds quickly to antibiotics. Your antibiotic should be taken exactly as prescribed. Drink plenty of fluids -- three to four quarts a day. Occasionally, a bladder anesthetic will be prescribed to help stop the feeling of urgency until the antibiotic has a chance to clear the infection. This may cause your urine to be dark orange. Certain urine infections require a culture. If the doctor obtained a culture, the results will be back in two days. You should call to see if a change in treatment is needed. A repeat urinalysis after you finish treatment is often recommended. The physician will let you know if further testing is required. Call the doctor if you develop fever, chills, flank pain, inability to urinate, or blood in the urine. ANTIBIOTIC THERAPY: You have been given an antibiotic prescription. It's important that you take all the medication, unless instructed otherwise by your physician. Failure to complete the entire course can result in relapse of your condition. Common side effects of antibiotics include nausea, intestinal cramping, or diarrhea. Women may develop vaginal yeast infections, and babies can get yeast (thrush) in the mouth following the use of antibiotics. Contact your physician if you develop significant side effects from this medication. Allergy to this antibiotic can result in hives, wheezing, faintness, or itching. If symptoms of allergy occur, stop the medication and call the doctor. CEPHALEXIN: The antibiotic you've been prescribed is a member of the cephalosporin class. This type of antibiotic covers a wide variety of infections, including those of the skin, lungs, and urinary tract. It's useful for staph infections. This antibiotic is slightly similar to the penicillin family. In rare cases , a person who is allergic to penicillin will also be allergic to this medication. If you have had a severe allergic reaction to penicillin, and have not taken this antibiotic since that time, notify your doctor. Antibiotics which cover many germs ("broad spectrum" antibiotics) are more likely to cause diarrhea or "yeast" infections. Women prone to vaginal yeast problems may suffer an attack after taking this antibiotic. In infants, oral thrush (white spots "stuck" on the cheek) or yeast diaper rash may result. See your doctor if these problems occur. Call at once if you develop itching, hives , shortness of breath, or lightheadedness. FOLLOW-UP CARE: If you have been referred to a physician for follow-up care, call the physician s office for an appointment as you were instructed or within the next two days. If you experience worsening or a significant change in your symptoms, notify the physician immediately or return to the Emergency Department at any time for re-evaluation. PNEUMONIA: Your examination indicates that you have pneumonia. This is an infection of the lung tissue, usually caused by bacteria or a virus. Symptoms include cough, fever, shaking chills, chest pain, shortness of breath, and coughing up bloody sputum. Treatment for bacterial pneumonia includes rest, antibiotics for 10 to 14 days, increasing your clear liquid intake, a cool mist humidifier at your bedside, and fever medication. Often, a repeat chest X-ray is performed in a few weeks--even if you feel better--to ascertain whether the infection has completely resolved and no underlying lung problem is present. You should call the physician if you develop persistent vomiting, high fever that does not respond to fever medication, increasing shortness of breath , confusion, or lethargy. Also, failure to improve within two to three days is an indication for re-examination. ANTIBIOTIC THERAPY: You have been given an antibiotic prescription. It's important that you take all the medication, unless instructed otherwise by your physician. Failure to complete the entire course can result in relapse of your condition. Common side effects of antibiotics include nausea, intestinal cramping, or diarrhea. Women may develop vaginal yeast infections, and babies can get yeast (thrush) in the mouth following the use of antibiotics. Contact your physician if you develop significant side effects from this medication. Allergy to this antibiotic can result in hives, wheezing, faintness, or itching. If symptoms of allergy occur, stop the medication and call the doctor. DOXYCYCLINE: Doxycycline (Vibramycin, Doryx) is an antibiotic of the tetracycline family. This type of drug is useful for infections of the respiratory tract and genital tract, and is sometimes used for intestinal infections. Unlike most tetracyclines, doxycycline can be taken with food. It is longer acting, and (usually) less prone to side effects than regular tetracycline. Tetracycline antibiotics can stain immature teeth and SHOULD NOT BE TAKEN BY CHILDREN, NURSING MOTHERS, OR WOMEN. Tetracyclines can make you more prone to sunburn. Abdominal cramping, nausea, and diarrhea are occasional side effects. Women may experience vaginal yeast infections. Call the doctor at once if you develop hives, itching, shortness of breath , or lightheadedness. USE OF ACETAMINOPHEN (Tylenol): Acetaminophen may be taken for pain relief or fever control. It's much safer than aspirin, offering a wider range of "safe" dosages. It is safe during . Some brand names are Tylenol, Panadol, Datril, Anacin 3, Tempra, and Liquiprin. Acetaminophen can be repeated every four hours. The following are maximum recommended dosages: WEIGHT Dose Drops Elixir Chewable( 80mg) (LBS.) drprs=droppers tsp=teaspoon 6 40 mg 0.4 ml (1/2) 6-11 80 mg 0.8 ml (full) tsp 1 tab 12-16 120 mg 1 1/2 drprs 3/4 tsp 1 1/2 tabs 17-23 160 mg 2 drprs 1 tsp 2 tabs 24-30 240 mg 3 drprs 1 1/2 tsp 3 tabs 30-35 320 mg 2 tsp 4 tabs 36-41 360 mg 2 1/4 tsp 4 1/2 tabs 42-47 400 mg 2 1/2 tsp 5 tabs 48-53 480 mg 3 tsp 6 tabs 54-59 520 mg 3 1/4 tsp 6 1/2 tabs 60-64 560 mg 3 1/2 tsp 7 tabs 65-70 600 mg 3 3/4 tsp 7 1/2 tabs 71-76 640 mg 4 tsp 8 tabs 77-82 720 mg 4 1/2 tsp 9 tabs 83-88 800 mg 5 tsp 10 tabs >89 pounds or adults 650 mg to 900 mg Acetaminophen can be repeated every four hours. Maximum dose not to exceed 4000 mg a day. These maximum recommended dosages are slightly higher than the dosages written on the product container, but these dosages are very safe and below the toxic dosage for acetaminophen. FOLLOW-UP CARE: If you have been referred to a physician for follow-up care, call the physician s office for an appointment as you were instructed or within the next two days. If you experience worsening or a significant change in your symptoms, notify the physician immediately or return to the Emergency Department at any time for re-evaluation. Prescriptions: Cephalexin Monohydrate [Keflex 500 mg Capsule] 500 mg PO TID 7 Days capsule Doxycycline Hyclate 100 mg PO BID #14 capsule Referrals: TESFAYE BATES MD [Primary Care Provider] - Follow up as needed
[2017-06-29 16:16] LABS: HEMATOCRIT 37.2 % (36.0-47.0); HEMOGLOBIN 12.1 g/dL (12.0-15.5); HGB HCT DIFFERENCE -0.9; MEAN CORPUSCULAR HEMOGLOBIN 26.2 pg (27.0-33.4); MEAN CORPUSCULAR HGB CONC 32.5 g/dL (32.0-36.0); MEAN CORPUSCULAR VOLUME 81 fl (80-97); RED BLOOD COUNT 4.61 10^6/uL (3.72-5.28); RED CELL DISTRIBUTION WIDTH 15.3 % (11.5-14.0); WHITE BLOOD COUNT 19.1 10^3/uL (4.0-10.5)
[2017-06-29 16:21] LABS: ALANINE AMINOTRANSFERASE 52 U/L (9-52); ALBUMIN 3.8 g/dL (3.5-5.0); ALKALINE PHOSPHATASE 93 U/L (38-126); ANION GAP 11 (5-19); ASPARTATE AMINO TRANSFERASE 46 U/L (14-36); BILIRUBIN,DIRECT 0.2 mg/dL (0.0-0.4); BILIRUBIN,TOTAL 0.4 mg/dL (0.2-1.3); BLOOD UREA NITROGEN 13 mg/dL (7-20); CALCIUM 8.8 mg/dL (8.4-10.2); CARBON DIOXIDE 25 mmol/L (22-30); CHLORIDE 102 mmol/L (98-107); CREATININE RESULT 0.77 mg/dL (0.52-1.25); GLUCOSE 96 mg/dL (75-110); POTASSIUM 3.2 mmol/L (3.6-5.0); SODIUM 137.7 mmol/L (137-145); TOTAL PROTEIN 6.1 g/dL (6.3-8.2)
[2017-06-29 16:29] LABS: BAND NEUTROPHILS % (MANUAL) 8 % (3-5); BASOPHILS % (MANUAL) 0 % (0-2); EOSINOPHILS % (MANUAL) 0 % (0-6); LYMPHOCYTES % (MANUAL) 6 % (13-45); TOTAL CELLS COUNTED 100
[2017-06-29 16:30] LABS: ANISOCYTOSIS SLIGHT; HYPOCHROMASIA SLIGHT
[2017-06-29] MEDS ORDERED: POTASSIUM CHLORIDE 10 MEQ TABLET.SA PO ONE (17:13)
--- NOTE | 2017-06-29 18:16 | EKG REPORT ---
SEVERITY:- ABNORMAL ECG - SINUS TACHYCARDIA BORDERLINE LEFT AXIS DEVIATION NONSPECIFIC ST-T CHANGES LATERAL LEADS : Confirmed by: Connor Rich MD 29-Jun-2017 18:15:52
[2017-06-29 18:17] LABS: APPEARANCE,URINE SLIGHTLY-CLOUDY; BILIRUBIN,URINE NEGATIVE (NEGATIVE); GLUCOSE, URINE >=500 mg/dL (NEGATIVE); KETONES,URINE NEGATIVE (NEGATIVE); LEUKOCYTE ESTERASE,URINE NEGATIVE (NEGATIVE); NITRITE,URINE POSITIVE (NEGATIVE); PROTEIN,URINE NEGATIVE (NEGATIVE); URINE SPECIFIC GRAVITY 1.024; UROBILINOGEN,URINE NEGATIVE mg/dL (<2.0)
[2017-06-29] MEDS ORDERED: CEPHALEXIN 500 MG CAPSULE PO ONE (18:45)
--- NOTE | 2017-06-29 18:49 | RADIOLOGY REPORT (SQ) ---
EXAM DESCRIPTION: CHEST SINGLE VIEW COMPLETED DATE/TIME: 06/29/2017 6:17 pm REASON FOR STUDY: leukocytosis COMPARISON: 04/10/2017 EXAM PARAMETERS: NUMBER OF VIEWS: One view. TECHNIQUE: Single frontal radiographic view of the chest acquired. RADIATION DOSE: NA LIMITATIONS: None. FINDINGS: LUNGS AND PLEURA: Subsegmental airspace disease in the right upper and lower lobes. MEDIASTINUM AND HILAR STRUCTURES: No masses. Contour normal. HEART AND VASCULAR STRUCTURES: Heart normal in size. Normal vasculature. BONES: No acute findings. HARDWARE: None in the chest. OTHER: Unchanged position of left-sided port. IMPRESSION: Early pneumonia right upper and lower lobes. TECHNICAL DOCUMENTATION: JOB ID: [id number] [employer]- All Rights Reserved
[2017-06-29] MEDS ORDERED: DOXYCYCLINE HYCLATE 100 MG TABLET PO ONE (18:55)
[2017-06-29 20:14] VITALS: BP 115/71
== END 2017-06-29 19:15 | disposition home or self-care (01) ==
LOC: ER 14:09
DX: N39.0 Urinary tract infection, site not specified (principal); D72.829 Elevated white blood cell count, unspecified; J18.9 Pneumonia, unspecified organism; R53.1 Weakness; R55 Syncope and collapse; G35 Multiple sclerosis; M54.9 Dorsalgia, unspecified; G89.29 Other chronic pain; Z79.899 Other long term (current) drug therapy
CPT/HCPCS: 93005; 36591; 99285; 96360; 36415; 85025; 80053; 81001; 71010; 93010; A9270 ×2; J7030

== ENCOUNTER → 2017-07-24 | Outpatient (CLI) | payer MEDICARE, MEDICAID ==
[2017-07-24 10:29] LABS: ABSOLUTE EOSINOPHILS # (AUTO) 0.3 10^3/uL (0.0-0.6); ABSOLUTE NEUT (AUTO) 6.5 10^3/uL (1.7-8.2); BASOPHILS % (AUTO) 0.4 % (0-2); EOSINOPHILS % (AUTO) 3.6 % (0-6); HEMATOCRIT 38.7 % (36.0-47.0); HEMOGLOBIN 12.7 g/dL (12.0-15.5); LYMPHOCYTES % (AUTO) 11.4 % (13-45); MEAN CORPUSCULAR HEMOGLOBIN 26.5 pg (27.0-33.4); MEAN CORPUSCULAR HGB CONC 32.9 g/dL (32.0-36.0); MEAN CORPUSCULAR VOLUME 81 fl (80-97); MONOCYTES % (AUTO) 11.4 % (3-13); PLATELET COUNT 352 10^3/uL (150-450); RED CELL DISTRIBUTION WIDTH 15.6 % (11.5-14.0); SEGMENTED NEUTROPHILS % (AUTO) 73.2 % (42-78); TOTAL CELLS COUNTED % (AUTO) 100 %; WHITE BLOOD COUNT 8.8 10^3/uL (4.0-10.5)
[2017-07-24 10:59] LABS: ALANINE AMINOTRANSFERASE 50 U/L (9-52); ALBUMIN 4.2 g/dL (3.5-5.0); ALKALINE PHOSPHATASE 91 U/L (38-126); ANION GAP 10 (5-19); ASPARTATE AMINO TRANSFERASE 37 U/L (14-36); BILIRUBIN,DIRECT 0.3 mg/dL (0.0-0.4); BILIRUBIN,TOTAL 0.3 mg/dL (0.2-1.3); BLOOD UREA NITROGEN 17 mg/dL (7-20); CALCIUM 9.7 mg/dL (8.4-10.2); CARBON DIOXIDE 28 mmol/L (22-30); CHLORIDE 105 mmol/L (98-107); CHOLESTEROL 149.65 mg/dL (0-200); GLUCOSE 60 mg/dL (75-110); MAGNESIUM 2.1 mg/dL (1.6-2.3); SODIUM 143.4 mmol/L (137-145); TOTAL PROTEIN 6.6 g/dL (6.3-8.2); TRIGLYCERIDES 121 mg/dL (<150)
[2017-07-24 11:19] LABS: DIRECT LDL 35 mg/dL (<100)
--- NOTE | 2017-07-24 14:22 | RADIOLOGY REPORT (SQ) ---
EXAM DESCRIPTION: CHEST PA/LATERAL COMPLETED DATE/TIME: 07/24/2017 10:51 am REASON FOR STUDY: PNEUMONIA, UNSPECIFIED ORGANISM COMPARISON: AP chest 06/29/2017, 04/10/2017 EXAM PARAMETERS: NUMBER OF VIEWS: two views TECHNIQUE: Digital Frontal and Lateral radiographic views of the chest acquired. RADIATION DOSE: NA LIMITATIONS: none FINDINGS: LUNGS AND PLEURA: No acute infiltrates. No pleural effusion or pneumothorax. Benign calc ified granuloma left upper lobe. MEDIASTINUM AND HILAR STRUCTURES: No masses or contour abnormalities. HEART AND VASCULAR STRUCTURES: Heart normal size. No evidence for failure. BONES: Osteoporotic HARDWARE: Left-sided permanent central line tip superior vena cava. Clips right upper quadrant post cholecystectomy. OTHER: No other significant finding. IMPRESSION: No acute findings TECHNICAL DOCUMENTATION: JOB ID: [id number] [employer]- All Rights Reserved
[2017-07-26 10:38] LABS: MICROALBUMIN URINE 3.9 ug/mL (Not Estab.)
== END ==
LOC: OD 09:30
PROVIDERS: ATTEND Family Medicine Geriatric Medicine
DX: J18.9 Pneumonia, unspecified organism (principal); E11.9 Type 2 diabetes mellitus without complications; E03.9 Hypothyroidism, unspecified; E87.6 Hypokalemia; E78.5 Hyperlipidemia, unspecified; Z79.899 Other long term (current) drug therapy
CPT/HCPCS: 36415; 71046; 80053; 80061; 82043; 82570; 83036; 83735; 84443; 85025

== ENCOUNTER 2017-07-28 11:48 | Emergency (ER) | payer MEDICARE, MEDICAID ==
[2017-07-28] MEDS ORDERED: NORMAL SALINE 1000 ML 1,000 ML IV PRN (12:53)
[2017-07-28] MEDS ORDERED: METHYLPREDNISOLONE INJ 125 MG/2 ML SDV IV ONE (12:53)
[2017-07-28] MEDS ORDERED: DIPHENHYDRAMINE HCL 50 MG/ML VIAL IV ONE (12:54)
[2017-07-28] MEDS ORDERED: HYDROMORPHONE HCL INJ/PF 2 MG/ML AMPULE IV ONE ×3 (12:54→14:05)
[2017-07-28] MEDS ORDERED: METOCLOPRAMIDE HCL INJ/PF 10 MG/2 ML SDV IV ONE (12:54)
--- NOTE | 2017-07-28 12:56 | ER Document Report ---
ED Medical Screen (RME) - General Chief Complaint: Headache Stated Complaint: HEADACHE Time Seen by Provider: 07/28/17 12:52 Mode of Arrival: Ambulatory Information source: Patient Notes: This is a 51-year-old female with a history of migraines presents to the emergency room with a typical migraine for the past 3-4 days. Patient states this is not the worst migraine of her life and she has had migraines that of a lasted 21 days. She is trying to cut this morning off early. She denies any fever or chills. She denies any recent illnesses. Denies any photophobia or neck stiffness. TRAVEL OUTSIDE OF THE [place] IN LAST 30 DAYS: No - HPI Onset: Other Onset/Duration: Gradual - 3 days ago Quality of pain: Dull Severity: Moderate Pain Level: 3 Associated Symptoms: denies: Chest pain, Fever, Shortness of breath Exacerbated by: Denies Relieved by: Denies Similar symptoms previously: Yes Recently seen / treated by doctor: Yes - Related Data Smoking: Non-smoker Frequency of alcohol use: None Drug Abuse: None Allergies/Adverse Reactions: No Known Allergies Allergy (Verified 07/28/17 11:49) Past Medical History - General Information source: Patient - Social History Cigarette use (# per day): No Chew tobacco use (# tins/day): No Frequency of alcohol use: None Drug Abuse: None Lives with: Family Family history: None - Past Medical History Cardiac Medical History: Reports: None Pulmonary Medical History: Reports: None Neurological Medical History: Reports: Hx Migraine Endocrine Medical History: Reports: Hx Diabetes Mellitus Type 2 Renal/ Medical History: Denies: Hx Peritoneal Dialysis Malignancy Medical History: Reports: None GI Medical History: Reports: None Musculoskeltal Medical History: Reports None Skin Medical History: Reports None Psychiatric Medical History: Reports: None Traumatic Medical History: Reports: None Past Surgical History: Reports: Hx Abdominal Surgery - gastric bypass, Hx Cholecystectomy, Hx Hysterectomy - Immunizations Hx Diphtheria, Pertussis, Tetanus Vaccination: No History of Influenza Vaccine for 04/2017 - 09/2017 Season: No Review of Systems - Review of Systems Constitutional: denies: Chills, Fever EENT: No symptoms reported Cardiovascular: No symptoms reported Respiratory: No symptoms reported Gastrointestinal: No symptoms reported Genitourinary: No symptoms reported Female Genitourinary: No symptoms reported Musculoskeletal: No symptoms reported Skin: No symptoms reported Hematologic/Lymphatic: No symptoms reported Neurological/Psychological: See HPI Physical Exam - Vital signs Vitals: Temp Pulse Resp BP Pulse Ox 97.8 F 89 16 123/75 98 07/28/17 11:51 07/28/17 11:51 07/28/17 11:51 07/28/17 11:51 07/28/17 11:51 Notes: This is a well-appearing 51-year-old female. Physical exam: HEAD: Atraumatic, normocephalic. Patient is alert and oriented 3. EYES: Pupils equal round and reactive to light, extraocular movements intact, sclera anicteric, conjunctiva are normal. ENT: TMs normal, nares patent, oropharynx clear without exudates. Moist mucous membranes. NECK: Normal range of motion, supple without obvious mass or JVD. LUNGS: Breath sounds clear to auscultation bilaterally and equal. No wheezes rales or rhonchi. HEART: Regular rate and rhythm without murmurs, rubs or gallops. ABDOMEN: Soft, normoactive bowel sounds. No tenderness to palpation. No guarding, no rebound. No masses appreciated. EXTREMITIES: Normal range of motion, no pitting or edema. No clubbing or cyanosis. NEUROLOGICAL: Cranial nerves II through XII grossly intact. Normal speech, moving all extremities. Motor 5/5, sensory grossly intact, cerebellar grossly normal. Patient's neck is supple. There is no photophobia. PSYCH: Normal mood, normal affect. SKIN: Warm, Dry, normal turgor, no rashes or lesions noted. Course - Re-evaluation Re-evalutation: 07/28/17 14:45 Patient's headache is resolved. She will follow-up with her primary care doctor this week and she does have a neurologist (Dr. Engel) and I have advised her to follow-up with him. At the time of discharge, I have instructed the patient at the bedside with regards to return precautions and follow-up recommendations. The opportunity for questions was given. The patient has verbalized understanding of these instructions and the need for follow-up. 07/28/17 17:35 - Vital Signs Vital signs: Temp Pulse Resp BP Pulse Ox 97.9 F 89 16 103/64 99 07/28/17 14:47 07/28/17 14:47 07/28/17 14:47 07/28/17 14:47 07/28/17 14:47 - Laboratory Result Diagrams: 07/28/17 13:35 07/28/17 13:35 Laboratory results interpreted by me: 07/28/17 07/28/17 07/28/17 13:05 13:35 13:35 MCH 26.2 L RDW 15.5 H Lymphocytes % 10.9 L Glucose 72 L AST 54 H ALT 61 H Urine Glucose (UA) 50 H Doctor's Discharge - Discharge Clinical Impression: Migraine headache Condition: Stable Disposition: HOME, SELF-CARE Instructions: Antinausea Medication ([facility]), Headache ([facility]), Oral Narcotic Medication ([facility]), Pain Medication Injection ([facility]) Additional Instructions: As we discussed, your blood work looked good today. Thank you for choosing [facility] for your care. The examination and treatment you have received in the Emergency Department today has been rendered on an emergency basis only and is not intended to be a substitute for complete medical care. You should contact your follow-up physician as it is important that she/he examine you for any new or remaining problems. If your problem worsens or new symptoms appear and you are unable to arrange prompt follow-up care, return to the Emergency Department. Specific signs to look out for: Worsening headache, fever (temperature greater than 100.4), any concerns or getting worse. Any other instructions: Rest, drink plenty of fluids, take medicines as prescribed. Follow-up with both your primary care doctor and your neurologist as needed. Prescriptions: Hydromorphone HCl [Dilaudid 2 Mg Tablet] 2 mg PO Q6H PRN #14 tablet PRN Reason: for pain Metoclopramide HCl [Reglan 10 mg Tablet] 1 - 2 tab PO ASDIR PRN #10 tablet PRN Reason: Referrals: JANNETTE ENGEL MD [ACTIVE STAFF] - Follow up in 3-5 days
[2017-07-28 14:01] LABS: ABSOLUTE EOSINOPHILS # (AUTO) 0.4 10^3/uL (0.0-0.6); ABSOLUTE LYMPHOCYTES (AUTO) 0.8 10^3/uL (0.5-4.7); ABSOLUTE MONOCYTES (AUTO) 0.8 10^3/uL (0.1-1.4); ABSOLUTE NEUT (AUTO) 5.7 10^3/uL (1.7-8.2); BASOPHILS % (AUTO) 0.6 % (0-2); EOSINOPHILS % (AUTO) 4.8 % (0-6); HEMATOCRIT 39.1 % (36.0-47.0); HEMOGLOBIN 12.8 g/dL (12.0-15.5); LYMPHOCYTES % (AUTO) 10.9 % (13-45); MEAN CORPUSCULAR HEMOGLOBIN 26.2 pg (27.0-33.4); MEAN CORPUSCULAR HGB CONC 32.6 g/dL (32.0-36.0); MEAN CORPUSCULAR VOLUME 80 fl (80-97); MONOCYTES % (AUTO) 10.3 % (3-13); PLATELET COUNT 310 10^3/uL (150-450); RED BLOOD COUNT 4.87 10^6/uL (3.72-5.28); RED CELL DISTRIBUTION WIDTH 15.5 % (11.5-14.0); SEGMENTED NEUTROPHILS % (AUTO) 73.4 % (42-78); TOTAL CELLS COUNTED % (AUTO) 100 %; WHITE BLOOD COUNT 7.8 10^3/uL (4.0-10.5)
[2017-07-28 14:01] LABS: APPEARANCE,URINE CLOUDY; BILIRUBIN,URINE NEGATIVE (NEGATIVE); COLOR,URINE YELLOW; GLUCOSE, URINE 50 mg/dL (NEGATIVE); KETONES,URINE NEGATIVE (NEGATIVE); LEUKOCYTE ESTERASE,URINE NEGATIVE (NEGATIVE); NITRITE,URINE NEGATIVE (NEGATIVE); PROTEIN,URINE NEGATIVE (NEGATIVE); URINE SPECIFIC GRAVITY 1.018; UROBILINOGEN,URINE NEGATIVE mg/dL (<2.0)
[2017-07-28 14:14] LABS: ALANINE AMINOTRANSFERASE 61 U/L (9-52); ALBUMIN 4.1 g/dL (3.5-5.0); ALKALINE PHOSPHATASE 90 U/L (38-126); ANION GAP 8 (5-19); ASPARTATE AMINO TRANSFERASE 54 U/L (14-36); BILIRUBIN,DIRECT 0.2 mg/dL (0.0-0.4); BILIRUBIN,TOTAL 0.4 mg/dL (0.2-1.3); BLOOD UREA NITROGEN 13 mg/dL (7-20); CALCIUM 9.2 mg/dL (8.4-10.2); CARBON DIOXIDE 27 mmol/L (22-30); CHLORIDE 105 mmol/L (98-107); GLUCOSE 72 mg/dL (75-110); POTASSIUM 3.8 mmol/L (3.6-5.0); SODIUM 139.6 mmol/L (137-145); TOTAL PROTEIN 6.7 g/dL (6.3-8.2)
[2017-07-28 14:48] VITALS: BP 103/64
== END 2017-07-28 14:48 | disposition home or self-care (01) ==
LOC: ER 11:48
DX: G43.909 Migraine, unspecified, not intractable, without status migrainosus (principal); E11.9 Type 2 diabetes mellitus without complications; Z98.84 Bariatric surgery status
CPT/HCPCS: 99284; 96361; 96374; 96375; 36415; 85025; 80053; 81001; J1200; J2930; J2765; J1170; J7030

== ENCOUNTER → 2017-08-16 | Outpatient (CLI) | payer MEDICARE, MEDICAID ==
--- NOTE | 2017-08-16 12:03 | RADIOLOGY REPORT (SQ) ---
EXAM DESCRIPTION: LUMBAR SPINE COMPLETE COMPLETED DATE/TIME: 08/16/2017 9:52 am REASON FOR STUDY: LOW BACK PAIN M54.12 RADICULOPATHY, CERVICAL REGION M54.5 LOW BACK PAIN COMPARISON: None. NUMBER OF VIEWS: Five views including obliques. TECHNIQUE: AP, lateral, oblique, and sacral radiographic images acquired of the lumbar spine. LIMITATIONS: None. FINDINGS: MINERALIZATION: Normal. SEGMENTATION: Normal. No transitional anatomy. ALIGNMENT: Mild grade 1 anterolisthesis of L4 over L5 related to bulky bilateral facet arthropathy VERTEBRAE: Maintained height. No fracture or worrisome bone lesion. DISCS: Disc space loss of height at L2-3, L3-4, L4-5, and L5-S1. POSTERIOR ELEMENTS: Bulky bilateral facet arthropathy at L3-4, L4-5, and L5-S1 HARDWARE: None in the spine. PARASPINAL SOFT TISSUES: Clips right upper quadrant post cholecystectomy PELVIS: Mild bilateral SI joint sclerosis [id number] OTHER: No other significant finding. IMPRESSION: Lower lumbar advanced facet arthropathy. Multilevel degenerative disc space loss of hei natashat TECHNICAL DOCUMENTATION: JOB ID: [id number]- All Rights Reserved
--- NOTE | 2017-08-16 12:06 | RADIOLOGY REPORT (SQ) ---
EXAM DESCRIPTION: C SP 6 OR MORE VIEWS COMPLETED DATE/TIME: 08/16/2017 9:52 am REASON FOR STUDY: RADICULOPATHY, CERVICAL REGION M54.12 RADICULOPATHY, CERVICAL REGION M54.5 LOW B ACK PAIN COMPARISON: CT cervical spine 04/18/2017 NUMBER OF VIEWS: Seven views. TECHNIQUE: AP, lateral, obliques, flexion, extension, and odontoid radiographic images acquired of t he cervical spine. LIMITATIONS: None. FINDINGS: MINERALIZATION: Normal. ALIGNMENT: Mild anterolisthesis of C4 over C5 related to facet arthropathy bilaterally FLEXION/EXTENSION: No instability. VERTEBRAE: Vertebral bodies of normal height. DISCS: Disc space loss of height with anterior and posterior osteophyte formation at C5-6 and C4-5 FORAMINA: Mild right C5-6 foraminal narrowing. Moderate left C2-3 foraminal narrowing. LATERAL AND POSTERIOR ELEMENTS: Facets, lateral masses, and spinous processes without significant fin dings. HARDWARE: None in the spine. SOFT TISSUES: No masses or calcifications. Lung apices clear. OTHER: No other significant finding. IMPRESSION: Diffuse degenerative changes with multilevel facet arthropathy. Degenerative anterolist hesis of C4 over C5. NO INSTABILITY ON FLEXION/EXTENSION. TECHNICAL DOCUMENTATION: JOB ID: [id number] [employer]- All Rights Reserved
== END ==
LOC: OD 09:21
PROVIDERS: ATTEND Pain Medicine Pain Medicine
DX: M54.12 Radiculopathy, cervical region (principal); M54.5 Low back pain
CPT/HCPCS: 72052; 72110

== ENCOUNTER → 2017-11-06 | Outpatient (CLI) | payer MEDICARE, MEDICAID ==
[2017-11-06 11:58] LABS: ABSOLUTE EOSINOPHILS # (AUTO) 0.7 10^3/uL (0.0-0.6); ABSOLUTE LYMPHOCYTES (AUTO) 0.8 10^3/uL (0.5-4.7); ABSOLUTE MONOCYTES (AUTO) 0.9 10^3/uL (0.1-1.4); ABSOLUTE NEUT (AUTO) 5.9 10^3/uL (1.7-8.2); BASOPHILS % (AUTO) 0.3 % (0-2); EOSINOPHILS % (AUTO) 8.1 % (0-6); HEMATOCRIT 41.3 % (36.0-47.0); HEMOGLOBIN 13.5 g/dL (12.0-15.5); LYMPHOCYTES % (AUTO) 10.1 % (13-45); MEAN CORPUSCULAR HEMOGLOBIN 26.4 pg (27.0-33.4); MEAN CORPUSCULAR HGB CONC 32.6 g/dL (32.0-36.0); MEAN CORPUSCULAR VOLUME 81 fl (80-97); PLATELET COUNT 366 10^3/uL (150-450); RED BLOOD COUNT 5.09 10^6/uL (3.72-5.28); SEGMENTED NEUTROPHILS % (AUTO) 70.5 % (42-78); TOTAL CELLS COUNTED % (AUTO) 100 %; WHITE BLOOD COUNT 8.3 10^3/uL (4.0-10.5)
[2017-11-06 12:27] LABS: ALANINE AMINOTRANSFERASE 38 U/L (9-52); ANION GAP 14 (5-19); ASPARTATE AMINO TRANSFERASE 30 U/L (14-36); BLOOD UREA NITROGEN 16 mg/dL (7-20); CALCIUM 9.6 mg/dL (8.4-10.2); CARBON DIOXIDE 28 mmol/L (22-30); CHLORIDE 102 mmol/L (98-107); GLUCOSE 78 mg/dL (75-110); POTASSIUM 4.4 mmol/L (3.6-5.0); SODIUM 143.7 mmol/L (137-145); TRIGLYCERIDES 129 mg/dL (<150)
[2017-11-06 12:38] LABS: DIRECT LDL 42 mg/dL (<100)
[2017-11-07 10:38] LABS: CREATININE URINE 109.9 mg/dL (Not Estab.); MICROALBUMIN URINE 10.2 ug/mL (Not Estab.)
== END ==
LOC: OD 10:33
PROVIDERS: ATTEND Family Medicine Geriatric Medicine
DX: E78.5 Hyperlipidemia, unspecified (principal); E03.9 Hypothyroidism, unspecified; Z79.899 Other long term (current) drug therapy
CPT/HCPCS: 36415; 80048; 80061; 82043; 82570; 83036; 84443; 84450; 84460; 85025

== ENCOUNTER → 2017-12-26 | Outpatient (CLI) | payer MEDICARE, MEDICAID | LOC: OD 13:05 | PROVIDERS: ATTEND Specialist | DX: N64.3 Galactorrhea not associated with childbirth (principal) | CPT/HCPCS: 36415; 84146 ==

== ENCOUNTER → 2018-02-18 | Outpatient (CLI) | payer MEDICARE, MEDICAID ==
--- NOTE | 2018-02-18 11:39 | WOMENS IMAGING REPORT ---
EXAM DESCRIPTION: 3D DX MAMMO BILAT; U/S BREAST UNILAT LIMITED COMPLETED DATE/TIME: 02/18/2018 10:31 am; 02/18/2018 11:25 am REASON FOR STUDY: NIPPLE DISCHARGE;N64.52; BILATERAL BREAST N64.52 N64.52 NIPPLE DISCHARGE COMPARISON: None. TECHNIQUE: Standard craniocaudal and mediolateral oblique views of each breast recorded using digita l acquisition and breast tomosynthesis. True lateral view both breasts. LIMITATIONS: None. FINDINGS: RIGHT BREAST MASSES: No suspicious masses. CALCIFICATIONS: No new or suspicious calcifications. ARCHITECTURAL DISTORTION: None. DEVELOPING DENSITY: None. ASYMMETRY: None noted. OTHER: No other significant findings. LEFT BREAST MASSES: No suspicious masses. CALCIFICATIONS: No new or suspicious calcifications. ARCHITECTURAL DISTORTION: None. DEVELOPING DENSITY: None. ASYMMETRY: None noted. OTHER: No other significant finding. Read with the assistance of CAD: .[facility] - R2 Cenova Version 1.3 .[facility] - R2 Cenova Version 1.3 .[facility] - R2 Cenova Version 2.4 .[facility] [place] - R2 Cenova Version 2.4 .[facility] - R2 Tire Duster Version 9.2 Ultrasound of both breasts demonstrates small cysts in the subareolar region. No suspicious masses. IMPRESSION: No evidence of malignancy. BREAST DENSITY: b. There are scattered areas of fibroglandular density. BIRAD: 2 Benign findings. RECOMMENDATION: RECOMMENDED FOLLOW UP: Birads 1 or 2: No breast imaging finding to explain the patie nt's presenting complaint. Further intervention should be based on the degree of clinical suspicion. SPECIFIC INTERVENTION/IMAGING/CONSULTATION RECOMMENDED:No additional intervention/ imaging/consultati on needed at this time. COMMUNICATION:The imaging findings were not discussed with the patient. Her referring provider has be en notified of the findings. COMMENT: The patient has been notified of the results by letter per SA requirements. Additional no tification policies are in place for contacting patient with suspicious or incomplete findings. Quality ID #[id number]: The [employer] recommends an annual screening mammogram for women aged 40 years or over. This facility utilizes a reminder system to ensure that all patients receive reminder letters, and/or direct phone calls for appointments. This includes reminders for routine scr eening mammograms, diagnostic mammograms, or other Breast Imaging Interventions when appropriate. Th is patient will be placed in the appropriate reminder system. The [employer] (ACR) has developed recommendations for screening MRI of the breast s in certain patient populations, to be used in conjunction with mammography. Breast MRI surveillanc e may be appropriate for women with more than 20% lifetime risk of developing breast cancer as deter mined by genetic testing, significant family history of the disease, or history of mantle radiation f or Hodgkins Disease. ACR Practice Guidelines 2008. DBT Technology DBT is a type of tomographic mammography. With conventional mammography, overlapping breast tissue ma y make lesions difficult to detect, even with good compression. DBT uses an x-ray tube that rotates a round the breast, taking images at different angles. These images are then combined to create thin sl ices of the breast that the radiologist can view as a 3D reconstruction. The [employer] unit can perform full-field digital mammograms (2D imaging); or DBT (3D imaging); or both, in a combination mode that quickly performs both the mammogram and the tomosynthesis scan while the breast is still compressed. PQRS 6045F: Fluoroscopic imaging is not utilized for breast tomosynthesis. TECHNICAL DOCUMENTATION: FINDING NUMBER: (1) ASSESSMENT: (1) JOB ID: [id number] [employer]- All Rights Reserved Reading location - IP/workstation name: [email or web address]
--- NOTE | 2018-02-18 11:39 | WOMENS IMAGING REPORT ---
EXAM DESCRIPTION: 3D DX MAMMO BILAT; U/S BREAST UNILAT LIMITED COMPLETED DATE/TIME: 02/18/2018 10:31 am; 02/18/2018 11:25 am REASON FOR STUDY: NIPPLE DISCHARGE;N64.52; BILATERAL BREAST N64.52 N64.52 NIPPLE DISCHARGE COMPARISON: None. TECHNIQUE: Standard craniocaudal and mediolateral oblique views of each breast recorded using digita l acquisition and breast tomosynthesis. True lateral view both breasts. LIMITATIONS: None. FINDINGS: RIGHT BREAST MASSES: No suspicious masses. CALCIFICATIONS: No new or suspicious calcifications. ARCHITECTURAL DISTORTION: None. DEVELOPING DENSITY: None. ASYMMETRY: None noted. OTHER: No other significant findings. LEFT BREAST MASSES: No suspicious masses. CALCIFICATIONS: No new or suspicious calcifications. ARCHITECTURAL DISTORTION: None. DEVELOPING DENSITY: None. ASYMMETRY: None noted. OTHER: No other significant finding. Read with the assistance of CAD: .[facility] - R2 Cenova Version 1.3 .[facility] Imaging - R2 Cenova Version 1.3 .[facility] - R2 Cenova Version 2.4 .[facility] [place] - R2 Cenova Version 2.4 .[facility] - R2 Egg Breaking Machine Operator Version 9.2 Ultrasound of both breasts demonstrates small cysts in the subareolar region. No suspicious masses. IMPRESSION: No evidence of malignancy. BREAST DENSITY: b. There are scattered areas of fibroglandular density. BIRAD: 2 Benign findings. RECOMMENDATION: RECOMMENDED FOLLOW UP: Birads 1 or 2: No breast imaging finding to explain the patie nt's presenting complaint. Further intervention should be based on the degree of clinical suspicion. SPECIFIC INTERVENTION/IMAGING/CONSULTATION RECOMMENDED:No additional intervention/ imaging/consultati on needed at this time. COMMUNICATION:The imaging findings were not discussed with the patient. Her referring provider has be en notified of the findings. COMMENT: The patient has been notified of the results by letter per SA requirements. Additional no tification policies are in place for contacting patient with suspicious or incomplete findings. Quality ID #[id number]: The [employer] recommends an annual screening mammogram for women aged 40 years or over. This facility utilizes a reminder system to ensure that all patients receive reminder letters, and/or direct phone calls for appointments. This includes reminders for routine scr eening mammograms, diagnostic mammograms, or other Breast Imaging Interventions when appropriate. Th is patient will be placed in the appropriate reminder system. The [employer] (ACR) has developed recommendations for screening MRI of the breast s in certain patient populations, to be used in conjunction with mammography. Breast MRI surveillanc e may be appropriate for women with more than 20% lifetime risk of developing breast cancer as deter mined by genetic testing, significant family history of the disease, or history of mantle radiation f or Hodgkins Disease. ACR Practice Guidelines 2008. DBT Technology DBT is a type of tomographic mammography. With conventional mammography, overlapping breast tissue ma y make lesions difficult to detect, even with good compression. DBT uses an x-ray tube that rotates a round the breast, taking images at different angles. These images are then combined to create thin sl ices of the breast that the radiologist can view as a 3D reconstruction. The Potential unit can perform full-field digital mammograms (2D imaging); or DBT (3D imaging); or both, in a combination mode that quickly performs both the mammogram and the tomosynthesis scan while the breast is still compressed. PQRS 6045F: Fluoroscopic imaging is not utilized for breast tomosynthesis. TECHNICAL DOCUMENTATION: FINDING NUMBER: (1) ASSESSMENT: (1) JOB ID: [id number] [employer]- All Rights Reserved Reading location - IP/workstation name: [email or web address]
--- NOTE | 2018-02-18 11:39 | WOMENS IMAGING REPORT ---
EXAM DESCRIPTION: 3D DX MAMMO BILAT; U/S BREAST UNILAT LIMITED COMPLETED DATE/TIME: 02/18/2018 10:31 am; 02/18/2018 11:25 am REASON FOR STUDY: NIPPLE DISCHARGE;N64.52; BILATERAL BREAST N64.52 N64.52 NIPPLE DISCHARGE COMPARISON: None. TECHNIQUE: Standard craniocaudal and mediolateral oblique views of each breast recorded using digita l acquisition and breast tomosynthesis. True lateral view both breasts. LIMITATIONS: None. FINDINGS: RIGHT BREAST MASSES: No suspicious masses. CALCIFICATIONS: No new or suspicious calcifications. ARCHITECTURAL DISTORTION: None. DEVELOPING DENSITY: None. ASYMMETRY: None noted. OTHER: No other significant findings. LEFT BREAST MASSES: No suspicious masses. CALCIFICATIONS: No new or suspicious calcifications. ARCHITECTURAL DISTORTION: None. DEVELOPING DENSITY: None. ASYMMETRY: None noted. OTHER: No other significant finding. Read with the assistance of CAD: .[facility] - R2 Cenova Version 1.3 .[facility] - R2 Cenova Version 1.3 .[facility] - R2 Cenova Version 2.4 .[facility] [place] - R2 Cenova Version 2.4 .[facility] - R2 Patient Partner Version 9.2 Ultrasound of both breasts demonstrates small cysts in the subareolar region. No suspicious masses. IMPRESSION: No evidence of malignancy. BREAST DENSITY: b. There are scattered areas of fibroglandular density. BIRAD: 2 Benign findings. RECOMMENDATION: RECOMMENDED FOLLOW UP: Birads 1 or 2: No breast imaging finding to explain the patie nt's presenting complaint. Further intervention should be based on the degree of clinical suspicion. SPECIFIC INTERVENTION/IMAGING/CONSULTATION RECOMMENDED:No additional intervention/ imaging/consultati on needed at this time. COMMUNICATION:The imaging findings were not discussed with the patient. Her referring provider has be en notified of the findings. COMMENT: The patient has been notified of the results by letter per SA requirements. Additional no tification policies are in place for contacting patient with suspicious or incomplete findings. Quality ID #[id number]: The [employer] recommends an annual screening mammogram for women aged 40 years or over. This facility utilizes a reminder system to ensure that all patients receive reminder letters, and/or direct phone calls for appointments. This includes reminders for routine scr eening mammograms, diagnostic mammograms, or other Breast Imaging Interventions when appropriate. Th is patient will be placed in the appropriate reminder system. The [employer] (ACR) has developed recommendations for screening MRI of the breast s in certain patient populations, to be used in conjunction with mammography. Breast MRI surveillanc e may be appropriate for women with more than 20% lifetime risk of developing breast cancer as deter mined by genetic testing, significant family history of the disease, or history of mantle radiation f or Hodgkins Disease. ACR Practice Guidelines 2008. DBT Technology DBT is a type of tomographic mammography. With conventional mammography, overlapping breast tissue ma y make lesions difficult to detect, even with good compression. DBT uses an x-ray tube that rotates a round the breast, taking images at different angles. These images are then combined to create thin sl ices of the breast that the radiologist can view as a 3D reconstruction. The 3225 films unit can perform full-field digital mammograms (2D imaging); or DBT (3D imaging); or both, in a combination mode that quickly performs both the mammogram and the tomosynthesis scan while the breast is still compressed. PQRS 6045F: Fluoroscopic imaging is not utilized for breast tomosynthesis. TECHNICAL DOCUMENTATION: FINDING NUMBER: (1) ASSESSMENT: (1) JOB ID: [id number] [employer]- All Rights Reserved Reading location - IP/workstation name: [email or web address]
== END ==
LOC: WI 10:13
PROVIDERS: ATTEND Surgery
DX: N64.52 Nipple discharge (principal); N60.02 Solitary cyst of left breast; N60.01 Solitary cyst of right breast
CPT/HCPCS: 76642; 77066; G0279; 77062

== ENCOUNTER 2018-07-24 18:48 | Emergency (ER) | payer MEDICARE, MEDICAID ==
--- NOTE | 2018-07-24 20:21 | ER Document Report ---
HPI - HPI Time Seen by Provider: 07/24/18 20:03 Pain Level: 4 Notes: Patient is a 52-year-old female with a history of chronic back pain (under the care of pain management), MS, type 2 diabetes, hypothyroidism who presents to the emergency department complaining of acute on chronic low back pain status post fall 6 hours ago. Patient states that she was reaching for a covered when she lost her balance and went straight down on her knees. Patient states that she "jolted her back." Patient states that she has been able to ambulate since then without any difficulties otherwise. Patient states that she does not have any knee or hip pain associated. The pain in her back does not radiate. She has been able to eat and drink without difficulty. She is urinating normally and having normal bowel movements. No history of spinal abscess or IV drug abuse. Denies any headache, fever, head injury, neck pain, changes in vision/speech/mentation/hearing, URI, sore throat, chest pain, palpitations, syncope, cough, shortness of breath, wheeze, dyspnea, abdominal pain, nausea/vomiting/diarrhea, urinary retention, dysuria, hematuria, loss of control of bowel or bladder, numbness/tingling, saddle anesthesia, muscle paralysis, or rash. - ROS Systems Reviewed and Negative: Yes All other systems reviewed and negative - REPRODUCTIVE Reproductive: DENIES: : Past Medical History - Social History Smoking Status: Unknown if Ever Smoked Family History: Reviewed & Not Pertinent Patient has suicidal ideation: No Patient has homicidal ideation: No Neurological Medical History: Reports: Hx Migraine Endocrine Medical History: Reports: Hx Diabetes Mellitus Type 2 Renal/ Medical History: Denies: Hx Peritoneal Dialysis Past Surgical History: Reports: Hx Abdominal Surgery - gastric bypass, Hx Cholecystectomy, Hx Hysterectomy - Immunizations Hx Diphtheria, Pertussis, Tetanus Vaccination: No Vertical Provider Document - CONSTITUTIONAL Agree With Documented VS: Yes Notes: PHYSICAL EXAMINATION: GENERAL: Well-appearing, well-nourished and in no acute distress. LUNGS: Breath sounds clear to auscultation bilaterally and equal. No wheezes rales or rhonchi. HEART: Regular rate and rhythm without murmurs, rubs, gallops. ABDOMEN: Soft, nontender, nondistended abdomen. No guarding, no rebound. No masses appreciated. Normal bowel sounds present. No CVA tenderness bilaterally. No pulsatile mass Musculoskeletal: LE's b/l: FROM to passive/active. Strength 5+/5. No deficits noted. No bony tenderness of extremities. Back: FROM to passive/active. Strength 5+/5. No vertebral point tenderness, stepoffs, or deformities. No other bony tenderness, erythema, swelling, or ecchymosis. SLR negative b/l. + mild tenderness to the L-paraspinal mm b/l, correlates with pain described. No SI jt tenderness. No foot drop Extremities: No cyanosis, clubbing, or edema b/l. Peripheral pulses 2+. Capillary refill less than 2 seconds. NEUROLOGICAL: Normal speech, ataxic gait. Normal sensory, motor exams. Reflexes 2+ b/l. PSYCH: Normal mood, normal affect. SKIN: Warm, Dry, normal turgor, no rashes or lesions noted. - INFECTION CONTROL TRAVEL OUTSIDE OF THE [place] IN LAST 30 DAYS: No Course - Re-evaluation Re-evalutation: 07/24/18 21:13 Patient is an afebrile, well-hydrated, 52-year-old female who presents to the ED with acute on chronic low back pain. Vitals are acceptable. PE is otherwise unremarkable for any focal neurological deficits. X-ray was unremarkable for any acute pathology. Lidoderm patch given. She has no significant tachycardia, tachypnea, or hypoxia. She is nontoxic-appearing and is tolerating p.o. without difficulties. There are no signs of infection. No other red flag symptoms noted. No other labs or imaging warranted at this time based on H&P. Low suspicion for any meningitis, fracture, expanding/ruptured AAA, cauda equina syndrome, epidural mass lesion/abscess, herniated disc causing severe spinal stenosis, or other systemic infection at this time. Patient is aware that this condition can change from initial presentation and that she needs monitor symptoms closely for any acute changes. Conservative measures otherwise for symptoms. Recheck with your PCM in 3-5 days. Keep consult/consult with your Pain Management. Return to the ED with any worsening/concerning symptoms otherwise as reviewed discharge. Patient is in agreement. - Vital Signs Vital signs: Temp Pulse Resp BP Pulse Ox 97.9 F 97 15 101/53 L 95 07/24/18 19:02 07/24/18 19:02 07/24/18 19:02 07/24/18 19:02 07/24/18 19:02 Discharge - Discharge Clinical Impression: Acute low back pain Qualifiers: Back pain laterality: bilateral Sciatica presence: without sciatica Qualified Code(s): M54.5 - Low back pain Condition: Stable Disposition: HOME, SELF-CARE Instructions: Low Back Pain ([facility]) Additional Instructions: Rest, Ice Tylenol/ibuprofen as needed Light stretches daily Strength exercises as able Moist heat and massage may help F/u with your PCP in 3-5 days for a recheck Consider consult(s) with Orthopedics/physical therapy for ongoing/worsening symptoms Return to the ED with any worsening symptoms and/or development of fever, headache, chest pain, palpitations, syncope, shortness of breath, trouble breathing, abdominal pain, n/v/d, blood in stool/urine, loss of control of bowel/bladder, urinary retention, muscle weakness/paralysis, saddle anesthesia, numbness/tingling, or other worsening symptoms that are concerning to you. Referrals: BEAR LONGORIA MD [NO LOCAL MD] - Follow up as needed [facility] [Provider Group] - Follow up as needed
--- NOTE | 2018-07-24 20:43 | RADIOLOGY REPORT (SQ) ---
EXAM DESCRIPTION: XR LUMBAR SPINE ANTEROPOSTERIOR, LATERAL, AND OBLIQUES COMPLETED DATE/TME: 07/24/2018 20:15 CLINICAL HISTORY: 52 years, Female, LBP, acute on chronic s/p fall Findings: Vertebral body heights are intact. Mild degenerative changes at L3-4, L4-5 and L5-S1. Minimal grade 1 anterolisthesis of L4 versus L3. Facets are normally aligned. IMPRESSION: Mild degenerative changes.
[2018-07-24] MEDS ORDERED: LIDOCAINE 5% (700 MG) TRANSDERMAL ADH..PATCH TP ONE (21:14)
[2018-07-24 21:29] VITALS: BP 117/62
== END 2018-07-24 21:30 | disposition home or self-care (01) ==
LOC: ER 18:48
DX: M54.5 Low back pain (principal); M54.9 Dorsalgia, unspecified; G89.29 Other chronic pain; W19.XXXA Unspecified fall, initial encounter; G35 Multiple sclerosis; E03.9 Hypothyroidism, unspecified; E11.9 Type 2 diabetes mellitus without complications
CPT/HCPCS: 72110; 99283

== ENCOUNTER 2018-09-28 10:57 | Emergency (ER) | payer MEDICARE, MEDICAID ==
[2018-09-28] MEDS ORDERED: NORMAL SALINE 1000 ML 1,000 ML IV ONE ×2 (11:09→13:23)
[2018-09-28] MEDS ORDERED: LIDOCAINE 1%/EPINEPHRINE INJ 20 ML VIAL INJ ONE (11:16)
--- NOTE | 2018-09-28 11:16 | ER Document Report ---
ED General - General Stated Complaint: FALL Time Seen by Provider: 09/28/18 11:00 Primary Care Provider: CARY WOLFF FNP-C [Primary Care Provider] - 10/03/18 TRAVEL OUTSIDE OF THE [place] IN LAST 30 DAYS: No - HPI Notes: Patient is a 52-year-old female that presents to the emergency department for ch ief complaint of fall. Patient called EMS after falling in her bathroom. Initially she states that she tripped over her feet and fell forward hitting her head on the ground. She stated she remembered falling and denied any loss of consciousness. Patient then went on to tell me that this morning she remembers getting ready and walking into the bathroom but does not remember falling and remembers waking up on the ground. She is currently complaining of pain over her left eye as well as some bleeding from that area. This morning patient did take her home medications about 30 minutes prior to the fall. She reports taking 2 mg Xanax, 7.5/325 Percocet, and a muscle relaxer. She states her MS medications does cause fluctuations in her blood pressure. She denies any dyspnea, chest pain, current lightheadedness, nausea/vomiting and recent diarrhea. Past Medical History: MS, diabetes, migraines Past Surgical History: Hysterectomy Social History: Denies drugs alcohol and tobacco use Family History: Reviewed and noncontributory for presenting illness Allergies: Reviewed, see documented allergy list. REVIEW OF SYSTEMS: CONSTITUTIONAL : No fever No chills No diaphoresis No recent illness EENT: No vision changes No congestion No sore throat CARDIOVASCULAR: No chest pain No palpitations RESPIRATORY: No shortness of breath No cough No difficulty breathing GASTROINTESTINAL: No abdominal pain No nausea No vomiting No diarrhea GENITOURINARY: No dysuria No hematuria No difficulty urinating MUSCULOSKELETAL: No back pain No leg pain No arm pain SKIN: No rashes Facial laceration LYMPHATIC: No swollen, enlarged glands. NEUROLOGICAL: No lightheadedness headache No weakness No paresthesias PSYCHIATRIC: No anxiety No depression PHYSICAL EXAMINATION: Vital signs reviewed, nursing noted reviewed. GENERAL: Appears intoxicated, well-nourished and in no acute distress. HEAD: No cephalohematoma, normocephalic. No bony tenderness or fluctuance EYES: Eyes appear normal, extraocular movements intact, sclera anicteric, conjunctiva are normal. ENT: No facial bone tenderness, nares patent, oropharynx clear without exudates. Moist mucous membranes. NECK: Normal range of motion, supple without lymphadenopathy, no midline spinal tenderness LUNGS: No chest wall tenderness. Breath sounds clear to auscultation bilaterally and equal. No wheezes rales or rhonchi. HEART: Regular rate and rhythm without murmurs ABDOMEN: Soft, nontender, normoactive bowel sounds. No rebound, guarding, or rigidity. No masses appreciated. EXTREMITIES: Pelvis stable. Nontender, good range of motion, no pitting or edema. NEUROLOGICAL: No focal neurological deficits. Moves all extremities spontaneously Motor and sensory grossly intact on exam. PSYCH: Flat affect SKIN: Warm, Dry, normal turgor. 1.6 cm linear full-thickness laceration on forehead just above left eyebrow with minimal bleeding - Related Data Allergies/Adverse Reactions: No Known Allergies Allergy (Verified 09/28/18 11:22) Past Medical History - Social History Smoking Status: Never Smoker Family History: Reviewed & Not Pertinent Neurological Medical History: Reports: Hx Migraine Endocrine Medical History: Reports: Hx Diabetes Mellitus Type 2 Renal/ Medical History: Denies: Hx Peritoneal Dialysis Past Surgical History: Reports: Hx Abdominal Surgery - gastric bypass, Hx Cholecystectomy, Hx Hysterectomy - Immunizations Hx Diphtheria, Pertussis, Tetanus Vaccination: No Physical Exam - Vital signs Vitals: Resp BP Pulse Ox 12 86/57 L 100 09/28/18 11:13 09/28/18 11:13 09/28/18 11:13 Course - Re-evaluation Re-evalutation: 09/28/18 11:14 Vitals reviewed. Nursing notes reviewed. Patient appears intoxicated likely related to her Percocet, muscle relaxer, and Xanax medications. She is awake and conversational with no focal neurologic deficits. Because of her apparent intoxication cervical collar was placed and imaging of the cervical spine will be obtained. CT brain also ordered to evaluate for injury. Patient's tetanus vaccine was updated. Her blood pressure presentation was 88/48 with a ulwjj-aj-chre sugar of 122. Patient started on IV fluids. Lab work initiated to evaluate her hypotension and possible syncopal episode. 09/28/18 11:47 Patient reevaluated. Her blood pressure is improving with IV fluids. There is now a roommate present who states that patient seemed to be in more pain last night so they placed 1 of the roommates 20 mg/h before and buprenorphine patch on her back. The patch was found and removed. Patient's hypotension altered mentation and falls are likely related to overmedication. 09/28/18 12:[address] scan showed no acute injury from her fall. Her chest x-ray shows no acute pulmonary vascular congestion or other cardiopulmonary process including widened mediastinum. Patient tolerated laceration repair well with no immediate complications. The remainder of her lab work is unremarkable. After 0.4 mg IV Narcan she is much more alert and conversational. Her blood pressure has improved to 100/59. Patient is receiving her second liter of IV fluids and will continue to be monitored in the emergency room. She has not had any dysrhythmia on the monitor. Laboratory 09/28/18 09/28/18 09/28/18 11:36 11:36 11:36 WBC 7.1 RBC 4.49 Hgb 12.4 Hct 37.3 MCV 83 MCH 27.6 MCHC 33.2 RDW 17.6 H Plt Count 317 Seg Neutrophils % 71.8 Lymphocytes % 12.9 L Monocytes % 10.2 Eosinophils % 4.7 Basophils % 0.4 Absolute Neutrophils 5.1 Absolute Lymphocytes 0.9 Absolute Monocytes 0.7 Absolute Eosinophils 0.3 Absolute Basophils 0.0 Sodium 137.9 Potassium 4.8 Chloride 109 H Carbon Dioxide 22 Anion Gap 7 BUN 15 Creatinine 0.89 Est GFR ( Amer) > 60 Est GFR (Non-Af Amer) > 60 Glucose 104 Calcium 9.4 Troponin I < 0.012 Serum Alcohol < [address] 09/28/18 11:08 IMPRESSION: 1. No acute intracranial abnormality. 2. No posttraumatic cervical spine changes appreciated. Spondylosis. Chest X-Ray 09/28/18 11:08 IMPRESSION: LOW LUNG VOLUMES. NO SIGNIFICANT RADIOGRAPHIC FINDING IN THE CHEST. Head CT 09/28/18 11:08 IMPRESSION: 1. No acute intracranial abnormality. 2. No posttraumatic cervical spine changes appreciated. Spondylosis. 09/28/18 13:24 After IV hydration patient's blood pressure has significantly improved. She is now 107/61. She is much more alert and is now able to ambulate throughout the department with any lightheadedness or difficulty. She is stable at this time for discharge. I did extensively drug and alcohol counselor her on limiting her home medications and the importance of not taking other peoples medications. She will increase intake of water at home. She will follow with her primary care doctor to discuss further medication recommendations. She is stable at discharge. - Vital Signs Vital signs: Temp Pulse Resp BP Pulse Ox 97.7 F 78 18 89/65 L 100 09/28/18 11:16 09/28/18 11:16 09/28/18 11:46 09/28/18 11:46 09/28/18 11:46 - Laboratory Result Diagrams: 09/28/18 11:36 09/28/18 11:36 Laboratory results interpreted by me: 09/28/18 09/28/18 11:36 11:36 RDW 17.6 H Lymphocytes % 12.9 L Chloride 109 H - Diagnostic Test Radiology reviewed: Image reviewed, Reports reviewed - EKG Interpretation by Me Additional EKG results interpreted by me: 09/28/18 11:51 Interpreted by myself 1148: Normal sinus rhythm, rate 61, normal axis, no ectopy, no STEMI, low voltage Procedures - Laceration/Wound Repair Face Time completed: 12:18 Wound length (cm): 1.6 Wound's Depth, Shape: Linear Laceration pre-procedure: Sterile drapes applied, Shur-Clens applied Anesthetic type: 1% Lidocaine w/epi Volume Anesthetic (mLs): 2 Wound explored: Clean, No foreign body removed Irrigated w/ Saline (mLs): 150 Wound Repaired With: Sutures Suture Size/Type: 5:0, Nylon Number of Sutures: 3 - Simple interrupted Layer Closure?: No Post-procedure wound care: Other - band-aid Post-procedure NV exam normal: Yes Complications: No Discharge - Discharge Clinical Impression: Closed head injury Qualifiers: Encounter type: initial encounter Qualified Code(s): S09.90XA - Unspecified injury of head, initial encounter Facial laceration Qualifiers: Encounter type: initial encounter Qualified Code(s): S01.81XA - Laceration wi thout foreign body of other part of head, initial encounter Hypotension Qualifiers: Hypotension type: other hypotension type Qualified Code(s): I95.89 - Other hypotension Medication reaction Qualifiers: Encounter type: initial encounter Qualified Code(s): T50.905A - Adverse effect of unspecified drugs, medicaments and biological substances, initial encounter Condition: Stable Disposition: HOME, SELF-CARE Instructions: Head Injury Precautions ([facility]), Laceration Care ([facility]), Tetanus Immunization Given ([facility]) Additional Instructions: Please return to the emergency department if you have any worsening, or concern of your symptoms. Please return to the emergency department if you develop chest pain, difficulty breathing, severe abdominal pain, or ongoing vomiting. Please follow-up with your primary care physician in 2-3 days and any other recommended physicians. If prescribed, take all medications as directed. If you have any questions or concerns do not hesitate to return the emergency department for evaluation. Have your primary care doctor remove your stitches and evaluate your home medications. Stitches need removed in 5 days Avoid using anyone else's prescription medications Referrals: CARY WOLFF, CLIENT INTEGRATION MANAGER-C [Primary Care Provider] - 10/03/18
[2018-09-28] MEDS ORDERED: NALOXONE HCL INJ/PF 0.4 MG/1 ML SDV IV ONE (11:48)
[2018-09-28 11:55] LABS: ABSOLUTE EOSINOPHILS # (AUTO) 0.3 10^3/uL (0.0-0.6); ABSOLUTE LYMPHOCYTES (AUTO) 0.9 10^3/uL (0.5-4.7); ABSOLUTE MONOCYTES (AUTO) 0.7 10^3/uL (0.1-1.4); ABSOLUTE NEUT (AUTO) 5.1 10^3/uL (1.7-8.2); BASOPHILS % (AUTO) 0.4 % (0-2); EOSINOPHILS % (AUTO) 4.7 % (0-6); HEMATOCRIT 37.3 % (36.0-47.0); HEMOGLOBIN 12.4 g/dL (12.0-15.5); LYMPHOCYTES % (AUTO) 12.9 % (13-45); MEAN CORPUSCULAR HEMOGLOBIN 27.6 pg (27.0-33.4); MEAN CORPUSCULAR HGB CONC 33.2 g/dL (32.0-36.0); MEAN CORPUSCULAR VOLUME 83 fl (80-97); MONOCYTES % (AUTO) 10.2 % (3-13); PLATELET COUNT 317 10^3/uL (150-450); RED BLOOD COUNT 4.49 10^6/uL (3.72-5.28); RED CELL DISTRIBUTION WIDTH 17.6 % (11.5-14.0); SEGMENTED NEUTROPHILS % (AUTO) 71.8 % (42-78); TOTAL CELLS COUNTED % (AUTO) 100 %; WHITE BLOOD COUNT 7.1 10^3/uL (4.0-10.5)
[2018-09-28 12:11] LABS: ANION GAP 7 (5-19); BLOOD UREA NITROGEN 15 mg/dL (7-20); CALCIUM 9.4 mg/dL (8.4-10.2); CARBON DIOXIDE 22 mmol/L (22-30); CHLORIDE 109 mmol/L (98-107); GLUCOSE 104 mg/dL (75-110); POTASSIUM 4.8 mmol/L (3.6-5.0); SODIUM 137.9 mmol/L (137-145)
[2018-09-28 12:12] LABS: ALCOHOL < 10 mg/dL (NONE DETECTED)
--- NOTE | 2018-09-28 12:19 | RADIOLOGY REPORT (SQ) ---
EXAM DESCRIPTION: CT CERVICAL SPINE WITHOUT; CT HEAD WITHOUT COMPLETED DATE/TIME: 09/28/2018 12:11 pm REASON FOR STUDY: trauma COMPARISON: See below. TECHNIQUE: Axial images acquired through the brain and cervical spine without intravenous contrast. Images reviewed with brain, subdural, lung, soft tissue and bone windows. Reconstructed coronal and sagittal MPR images reviewed. Images stored on PACS. All CT scanners at this facility use dose modulation, iterative reconstruction, and/or weight based d osing when appropriate to reduce radiation dose to as low as reasonably achievable (ALARA). [facility]: Dose Right [facility]: CareDose [facility]: Dose Right [facility]: Teradose 4D [facility]: [employer] RADIATION DOSE: CT Rad equipment meets quality standard of care and radiation dose reduction techniq ues were employed. CTDIvol: 24.4 mGy. DLP: 451 mGy-cm.; CT Rad equipment meets quality standard of ca re and radiation dose reduction techniques were employed. CTDIvol: 53.2 mGy. DLP: 1044 mGy-cm. mGy. LIMITATIONS: None. FINDINGS: Brain: 2017 comparison. Normal study. No hemorrhage. Normal CSF containing spaces. No fracture. Clear paranasal sinuses. Normal orbits. Cervical spine: 2017 comparison. Slight degenerative anterolisthesis at C3-4 and C4-5. Multilevel disc and facet disease. No fracture or bone lesion. Soft tissues unremarkable. Lung apices clear. IMPRESSION: 1. No acute intracranial abnormality. 2. No posttraumatic cervical spine changes appreciated. Spondylosis. TECHNICAL DOCUMENTATION: JOB ID: [id number] Quality ID # [id number]: Final reports with documentation of one or more dose reduction techniques (e.g., Au tomated exposure control, adjustment of the mA and/or kV according to patient size, use of iterative reconstruction technique) 2010 [employer]- All Rights Reserved Reading location - IP/workstation name: [email or web address]
--- NOTE | 2018-09-28 12:19 | RADIOLOGY REPORT (SQ) ---
EXAM DESCRIPTION: CT CERVICAL SPINE WITHOUT; CT HEAD WITHOUT COMPLETED DATE/TIME: 09/28/2018 12:11 pm REASON FOR STUDY: trauma COMPARISON: See below. TECHNIQUE: Axial images acquired through the brain and cervical spine without intravenous contrast. Images reviewed with brain, subdural, lung, soft tissue and bone windows. Reconstructed coronal and sagittal MPR images reviewed. Images stored on PACS. All CT scanners at this facility use dose modulation, iterative reconstruction, and/or weight based d osing when appropriate to reduce radiation dose to as low as reasonably achievable (ALARA). [facility]: Dose Right [facility]: CareDose [facility]: Dose Right [facility]: Teradose 4D [facility]: [employer] RADIATION DOSE: CT Rad equipment meets quality standard of care and radiation dose reduction techniq ues were employed. CTDIvol: 24.4 mGy. DLP: 451 mGy-cm.; CT Rad equipment meets quality standard of ca re and radiation dose reduction techniques were employed. CTDIvol: 53.2 mGy. DLP: 1044 mGy-cm. mGy. LIMITATIONS: None. FINDINGS: Brain: 2017 comparison. Normal study. No hemorrhage. Normal CSF containing spaces. No fracture. Clear paranasal sinuses. Normal orbits. Cervical spine: 2017 comparison. Slight degenerative anterolisthesis at C3-4 and C4-5. Multilevel disc and facet disease. No fracture or bone lesion. Soft tissues unremarkable. Lung apices clear. IMPRESSION: 1. No acute intracranial abnormality. 2. No posttraumatic cervical spine changes appreciated. Spondylosis. TECHNICAL DOCUMENTATION: JOB ID: [id number] Quality ID # [id number]: Final reports with documentation of one or more dose reduction techniques (e.g., Au tomated exposure control, adjustment of the mA and/or kV according to patient size, use of iterative reconstruction technique) 2010 [employer]- All Rights Reserved Reading location - IP/workstation name: [email or web address]
--- NOTE | 2018-09-28 12:21 | RADIOLOGY REPORT (SQ) ---
EXAM DESCRIPTION: CHEST SINGLE VIEW COMPLETED DATE/TIME: 09/28/2018 12:10 pm REASON FOR STUDY: syncope COMPARISON: 2017 NUMBER OF VIEWS: One view. TECHNIQUE: Single frontal radiographic view of the chest acquired. LIMITATIONS: None. FINDINGS: LUNGS AND PLEURA: Low lung volumes. No developing opacities, masses or pneumothorax. Sma ll calcified lung nodules, chronic. Consistent with previous granulomatous disease. No pleural effu madhu. MEDIASTINUM AND HILAR STRUCTURES: No masses. No contour abnormality. HEART AND VASCULAR STRUCTURES: Normal size. No evidence for failure. BONES: No acute findings. HARDWARE: Left port. Epidural spine leads. OTHER: No other significant finding. IMPRESSION: LOW LUNG VOLUMES. NO SIGNIFICANT RADIOGRAPHIC FINDING IN THE CHEST. TECHNICAL DOCUMENTATION: JOB ID: [id number] [employer]- All Rights Reserved Reading location - IP/workstation name: [email or web address]
[2018-09-28 13:26] VITALS: BP 107/61
[2018-09-28] MEDS ORDERED: DIPH/PERTUSS(ACELL)/TETANUS VAC/PF 0.5 ML SYR (>=10YO) IM ONE (13:34)
--- NOTE | 2018-09-29 00:15 | EKG REPORT ---
SEVERITY:- NORMAL ECG - SINUS RHYTHM : Confirmed by: Sulaiman Alfaro 29-Sep-2018 00:15:08
== END 2018-09-28 13:39 | disposition home or self-care (01) ==
LOC: ER 10:57
DX: S01.81XA Laceration without foreign body of other part of head, initial encounter (principal); R51 Headache; W01.0XXA Fall on same level from slipping, tripping and stumbling without subsequent striking against object, initial encounter; I95.9 Hypotension, unspecified; T88.7XXA Unspecified adverse effect of drug or medicament, initial encounter; T50.905A Adverse effect of unspecified drugs, medicaments and biological substances, initial encounter; R41.0 Disorientation, unspecified; M47.9 Spondylosis, unspecified; G35 Multiple sclerosis; Z79.899 Other long term (current) drug therapy; Z79.891 Long term (current) use of opiate analgesic; E11.9 Type 2 diabetes mellitus without complications; Z98.84 Bariatric surgery status
CPT/HCPCS: 93005; 99284; 96361; 90471; 96374; 36415; 80307; 85025; 80048; 84484; 71045; 70450; 72125; 90715; 93010; 12011; L0120; J3490; J2310; J7030

== ENCOUNTER → 2018-10-15 | Outpatient (CLI) | payer MEDICARE, MEDICAID ==
[2018-10-15 10:39] LABS: ABSOLUTE EOSINOPHILS # (AUTO) 0.4 10^3/uL (0.0-0.6); ABSOLUTE LYMPHOCYTES (AUTO) 1.4 10^3/uL (0.5-4.7); ABSOLUTE MONOCYTES (AUTO) 0.5 10^3/uL (0.1-1.4); BASOPHILS % (AUTO) 0.6 % (0-2); HEMATOCRIT 35.4 % (36.0-47.0); HEMOGLOBIN 11.8 g/dL (12.0-15.5); LYMPHOCYTES % (AUTO) 26.1 % (13-45); MEAN CORPUSCULAR HEMOGLOBIN 27.9 pg (27.0-33.4); MEAN CORPUSCULAR HGB CONC 33.4 g/dL (32.0-36.0); MEAN CORPUSCULAR VOLUME 83 fl (80-97); MONOCYTES % (AUTO) 9.3 % (3-13); PLATELET COUNT 308 10^3/uL (150-450); RED BLOOD COUNT 4.25 10^6/uL (3.72-5.28); RED CELL DISTRIBUTION WIDTH 17.1 % (11.5-14.0); TOTAL CELLS COUNTED % (AUTO) 100 %; WHITE BLOOD COUNT 5.4 10^3/uL (4.0-10.5)
[2018-10-15 11:09] LABS: ALANINE AMINOTRANSFERASE 20 U/L (9-52); ALBUMIN 3.7 g/dL (3.5-5.0); ALKALINE PHOSPHATASE 52 U/L (38-126); ANION GAP 6 (5-19); ASPARTATE AMINO TRANSFERASE 17 U/L (14-36); BILIRUBIN,DIRECT 0.3 mg/dL (0.0-0.4); BILIRUBIN,TOTAL 0.4 mg/dL (0.2-1.3); BLOOD UREA NITROGEN 14 mg/dL (7-20); CALCIUM 9.6 mg/dL (8.4-10.2); CARBON DIOXIDE 23 mmol/L (22-30); CHLORIDE 111 mmol/L (98-107); CHOLESTEROL 122.77 mg/dL (0-200); GLUCOSE 87 mg/dL (75-110); POTASSIUM 4.2 mmol/L (3.6-5.0); SODIUM 140.3 mmol/L (137-145); TOTAL PROTEIN 6.2 g/dL (6.3-8.2); TRIGLYCERIDES 86 mg/dL (<150)
[2018-10-15 11:20] LABS: DIRECT LDL 38 mg/dL (<100)
[2018-10-16 12:38] LABS: CREATININE URINE 85.7 mg/dL (Not Estab.); MICROALBUMIN URINE <3.0 ug/mL (Not Estab.)
== END ==
LOC: OD 09:26
PROVIDERS: ATTEND Family Medicine Geriatric Medicine
DX: E11.9 Type 2 diabetes mellitus without complications (principal); E66.3 Overweight; Z68.31 Body mass index [BMI] 31.0-31.9, adult; E78.5 Hyperlipidemia, unspecified; E03.9 Hypothyroidism, unspecified; J30.9 Allergic rhinitis, unspecified; M54.5 Low back pain; H81.13 Benign paroxysmal vertigo, bilateral; R94.31 Abnormal electrocardiogram [ECG] [EKG]; F31.9 Bipolar disorder, unspecified
CPT/HCPCS: 36415; 80053; 80061; 82043; 82570; 83036; 84443; 85025

== ENCOUNTER → 2019-01-15 | Outpatient (CLI) | payer MEDICARE, MEDICAID ==
[2019-01-15 15:38] LABS: ABSOLUTE EOSINOPHILS # (AUTO) 0.4 10^3/uL (0.0-0.6); ABSOLUTE LYMPHOCYTES (AUTO) 1.2 10^3/uL (0.5-4.7); ABSOLUTE MONOCYTES (AUTO) 0.9 10^3/uL (0.1-1.4); ABSOLUTE NEUT (AUTO) 7.8 10^3/uL (1.7-8.2); BASOPHILS % (AUTO) 0.4 % (0-2); EOSINOPHILS % (AUTO) 3.9 % (0-6); HEMATOCRIT 35.5 % (36.0-47.0); HEMOGLOBIN 11.8 g/dL (12.0-15.5); LYMPHOCYTES % (AUTO) 11.1 % (13-45); MEAN CORPUSCULAR HEMOGLOBIN 28.7 pg (27.0-33.4); MEAN CORPUSCULAR HGB CONC 33.3 g/dL (32.0-36.0); MEAN CORPUSCULAR VOLUME 86 fl (80-97); MONOCYTES % (AUTO) 9.1 % (3-13); PLATELET COUNT 298 10^3/uL (150-450); RED BLOOD COUNT 4.12 10^6/uL (3.72-5.28); SEGMENTED NEUTROPHILS % (AUTO) 75.5 % (42-78); TOTAL CELLS COUNTED % (AUTO) 100 %; WHITE BLOOD COUNT 10.4 10^3/uL (4.0-10.5)
[2019-01-15 15:40] LABS: ABSOLUTE EOSINOPHILS # (AUTO) 0.4 10^3/uL (0.0-0.6); ABSOLUTE LYMPHOCYTES (AUTO) 1.2 10^3/uL (0.5-4.7); ABSOLUTE MONOCYTES (AUTO) 0.9 10^3/uL (0.1-1.4); ABSOLUTE NEUT (AUTO) 7.8 10^3/uL (1.7-8.2); BASOPHILS % (AUTO) 0.4 % (0-2); EOSINOPHILS % (AUTO) 3.9 % (0-6); HEMATOCRIT 35.5 % (36.0-47.0); HEMOGLOBIN 11.8 g/dL (12.0-15.5); LYMPHOCYTES % (AUTO) 11.1 % (13-45); MEAN CORPUSCULAR HEMOGLOBIN 28.7 pg (27.0-33.4); MEAN CORPUSCULAR HGB CONC 33.3 g/dL (32.0-36.0); MEAN CORPUSCULAR VOLUME 86 fl (80-97); MONOCYTES % (AUTO) 9.1 % (3-13); PLATELET COUNT 298 10^3/uL (150-450); RED BLOOD COUNT 4.12 10^6/uL (3.72-5.28); SEGMENTED NEUTROPHILS % (AUTO) 75.5 % (42-78); TOTAL CELLS COUNTED % (AUTO) 100 %; WHITE BLOOD COUNT 10.4 10^3/uL (4.0-10.5)
[2019-01-15 16:05] LABS: ANION GAP 6 (5-19); BLOOD UREA NITROGEN 19 mg/dL (7-20); CALCIUM 9.2 mg/dL (8.4-10.2); CARBON DIOXIDE 23 mmol/L (22-30); CHLORIDE 110 mmol/L (98-107); GLUCOSE 133 mg/dL (75-110); POTASSIUM 4.8 mmol/L (3.6-5.0); SODIUM 139.3 mmol/L (137-145)
[2019-01-15 16:40] LABS: ALANINE AMINOTRANSFERASE 15 U/L (9-52); ALBUMIN 3.9 g/dL (3.5-5.0); ALKALINE PHOSPHATASE 49 U/L (38-126); ASPARTATE AMINO TRANSFERASE 18 U/L (14-36); BILIRUBIN,DIRECT 0.2 mg/dL (0.0-0.4); BILIRUBIN,TOTAL 0.3 mg/dL (0.2-1.3); TOTAL PROTEIN 6.3 g/dL (6.3-8.2)
[2019-01-17 11:37] LABS: CREATININE URINE 195.3 mg/dL (Not Estab.)
== END ==
LOC: OD 14:00
PROVIDERS: ATTEND Family Medicine Geriatric Medicine
DX: G35 Multiple sclerosis (principal); R53.83 Other fatigue; F33.0 Major depressive disorder, recurrent, mild; E11.9 Type 2 diabetes mellitus without complications; E78.5 Hyperlipidemia, unspecified; E03.9 Hypothyroidism, unspecified; Z79.899 Other long term (current) drug therapy; R94.31 Abnormal electrocardiogram [ECG] [EKG]
CPT/HCPCS: 36415; 80048; 80076; 82043; 82570; 83036; 84443; 85025

== ENCOUNTER → 2019-03-28 | Outpatient (CLI) | payer MEDICARE, MEDICAID ==
[2019-03-28 09:44] LABS: ABSOLUTE EOSINOPHILS # (AUTO) 0.5 10^3/uL (0.0-0.6); ABSOLUTE LYMPHOCYTES (AUTO) 0.5 10^3/uL (0.5-4.7); ABSOLUTE MONOCYTES (AUTO) 0.7 10^3/uL (0.1-1.4); ABSOLUTE NEUT (AUTO) 6.5 10^3/uL (1.7-8.2); BASOPHILS % (AUTO) 0.2 % (0-2); EOSINOPHILS % (AUTO) 5.8 % (0-6); HEMATOCRIT 30.9 % (36.0-47.0); HEMOGLOBIN 10.3 g/dL (12.0-15.5); LYMPHOCYTES % (AUTO) 5.7 % (13-45); MEAN CORPUSCULAR HEMOGLOBIN 28.4 pg (27.0-33.4); MEAN CORPUSCULAR HGB CONC 33.4 g/dL (32.0-36.0); MEAN CORPUSCULAR VOLUME 85 fl (80-97); PLATELET COUNT 264 10^3/uL (150-450); RED BLOOD COUNT 3.63 10^6/uL (3.72-5.28); RED CELL DISTRIBUTION WIDTH 14.6 % (11.5-14.0); SEGMENTED NEUTROPHILS % (AUTO) 79.3 % (42-78); TOTAL CELLS COUNTED % (AUTO) 100 %; WHITE BLOOD COUNT 8.2 10^3/uL (4.0-10.5)
[2019-03-28 10:04] LABS: ANION GAP 8 (5-19); BLOOD UREA NITROGEN 16 mg/dL (7-20); CALCIUM 8.5 mg/dL (8.4-10.2); CARBON DIOXIDE 23 mmol/L (22-30); CHLORIDE 108 mmol/L (98-107); CHOLESTEROL 181.38 mg/dL (0-200); GLUCOSE 83 mg/dL (75-110); TRIGLYCERIDES 181 mg/dL (<150)
[2019-03-28 10:15] LABS: DIRECT LDL 75 mg/dL (<100)
[2019-03-28 10:19] LABS: VLDL CHOLESTEROL 36.2 mg/dL (10-31)
== END ==
LOC: OD 08:50
PROVIDERS: ATTEND Family Medicine Geriatric Medicine
DX: E11.9 Type 2 diabetes mellitus without complications (principal); E78.5 Hyperlipidemia, unspecified; E03.9 Hypothyroidism, unspecified; Z79.899 Other long term (current) drug therapy
CPT/HCPCS: 36415; 80048; 80061; 83036; 84443; 84460; 85025

== ENCOUNTER → 2019-04-01 | Outpatient (CLI) | payer MEDICARE, MEDICAID ==
--- NOTE | 2019-04-02 16:50 | XCELERA REPORT ---
[address] [address] Transthoracic Echocardiogram Report Name: EDEN ASCENCIO Age: 53 yrs Gender: Female : 1965 Patient Status: Outpatient Patient Location: Study Date: 04/01/2019 01:12 PM Height: 65 in Weight: 177 lb BSA: 1.9 m2 Procedure: A complete two-dimensional transthoracic echocardiogram was performed (2D, M-mode, spectral and color flow Doppler). The study was technically adequate with some images being suboptimal in quality. Reason For Study: SOB Ordering Physician: TESFAYE BATES Performed By: Nerissa Albert Interpretation Summary The left ventricular ejection fraction is normal. There is normal left ventricular wall thickness. The left ventricle is grossly normal size. LV diastolic function could not be adequately assessed. Wall motion cannot be accurately commented on, but no definite regional wall motion abnormalities noted. The right ventricular systolic function is normal. Borderline right ventricular enlargement. The left atrium is mildly dilated. The right atrium is normal. There is a trace to mild amount of mitral regurgitation There is no mitral valve stenosis. No aortic regurgitation is present. There is no aortic valve stenosis There is a trace to mild amount of tricuspid regurgitation Tricuspid regurgitation jet envelope not well defined to measure RV systolic pressure accurately. The aortic root is not well visualized but is probably normal size. The inferior vena cava appeared normal and decreased > 50% with respiration (RAP 5-10 mmHg) There is no pericardial effusion. MMode/2D Measurements & Calculations RVDd: 2.8 cm LVIDd: 5.0 cm FS: 41.9 % Ao root diam: 3.2 cm IVSd: 0.72 cm LVIDs: 2.9 cm EDV(Teich): 116.2 ml Ao root area: 8.2 cm2 LVPWd: 0.99 cm ESV(Teich): 31.7 ml EF(Teich): 72.7 % Doppler Measurements & Calculations MV E max oleksandr: MV dec slope: Ao V2 max: LV V1 max P.7 cm/sec 445.9 cm/sec2 125.9 cm/sec 4.3 mmHg MV A max oleksandr: MV dec time: 0.19 secAo max PG: LV V1 max: 55.2 cm/sec 6.3 mmHg 104.1 cm/sec MV E/A: 1.5 PA V2 max: PI end-d oleksandr: TR max oleksandr: 108.8 cm/sec 94.7 cm/sec 263.6 cm/sec PA max P.7 mmHg TR max P.8 mmHg Left Ventricle The left ventricle is grossly normal size. There is normal left ventricular wall thickness. The left ventricular ejection fraction is normal. LV diastolic function could not be adequately assessed. Wall motion cannot be accurately commented on, but no definite regional wall motion abnormalities noted. Right Ventricle Borderline right ventricular enlargement. There is normal right ventricular wall thickness. The right ventricular systolic function is normal. Atria The right atrium is normal. The left atrium is mildly dilated. Interarterial septum not well visualized and not well dopplered. Cannot comment on ASD/PFO presence. Mitral Valve The mitral valve is grossly normal. There is no mitral valve stenosis. There is a trace to mild amount of mitral regurgitation. Aortic Valve The aortic valve is grossly normal. There is no aortic valve stenosis. No aortic regurgitation is present. Tricuspid Valve The tricuspid valve is not well visualized, but is grossly normal. There is no tricuspid stenosis. There is a trace to mild amount of tricuspid regurgitation. Tricuspid regurgitation jet envelope not well defined to measure RV systolic pressure accurately. Pulmonic Valve The pulmonic valve is not well visualized. Great Vessels The aortic root is not well visualized but is probably normal size. The inferior vena cava appeared normal and decreased > 50% with respiration (RAP 5-10 mmHg). Effusions There is no pericardial effusion. : TESFAYE BATES Shyamal
== END ==
LOC: SP 12:45
PROVIDERS: ATTEND Family Medicine Geriatric Medicine
DX: R06.2 Wheezing (principal); R94.31 Abnormal electrocardiogram [ECG] [EKG]
CPT/HCPCS: 93306

== ENCOUNTER 2019-04-18 18:36 | Emergency (ER) | payer MEDICARE, MEDICAID ==
[2019-04-18 19:21] LABS: HEMATOCRIT 35.1 % (36.0-47.0); HEMOGLOBIN 11.5 g/dL (12.0-15.5); MEAN CORPUSCULAR HEMOGLOBIN 27.7 pg (27.0-33.4); MEAN CORPUSCULAR HGB CONC 32.6 g/dL (32.0-36.0); MEAN CORPUSCULAR VOLUME 85 fl (80-97); PLATELET COUNT 284 10^3/uL (150-450); RED BLOOD COUNT 4.13 10^6/uL (3.72-5.28); RED CELL DISTRIBUTION WIDTH 15.6 % (11.5-14.0); WHITE BLOOD COUNT 10.8 10^3/uL (4.0-10.5)
--- NOTE | 2019-04-18 19:26 | ER Document Report ---
ED Psych Disorder / Suicide - General Stated Complaint: ALTERED MENTAL STATUS Time Seen by Provider: 04/18/19 19:05 Primary Care Provider: TESFAYE BATES MD [Primary Care Provider] - Follow up as needed Mode of Arrival: Medic Information source: Patient, Emergency Med Personnel Notes: Patient is a 53-year-old female presenting to the emergency department after an overdose. Patient was brought in via EMS after her roommate called because she possibly overdosed on her medications. The roommate reports she believes patient took 1 tablet each of her medications and then became very somnolent. Patient denies any suicide attempt, states she was having increased pain due to her MS so decided to take her medications. She did take both a narcotic opioid pain medication with a benzodiazepine. Her roommate is at the bedside stating that they were having a good evening, playing a board game and patient has not been overly depressed lately. She was very surprised when the patient became so somnolent. TRAVEL OUTSIDE OF THE [place] IN LAST 30 DAYS: No - Related Data Allergies/Adverse Reactions: No Known Allergies Allergy (Verified 09/28/18 11:22) Past Medical History - General Information source: Patient, Friend, Emergency Med Personnel - Social History Smoking Status: Current Every Day Smoker Frequency of alcohol use: None Drug Abuse: None Family History: Reviewed & Not Pertinent Patient has suicidal ideation: No Patient has homicidal ideation: No Neurological Medical History: Reports: Hx Migraine Endocrine Medical History: Reports: Hx Diabetes Mellitus Type 2 Renal/ Medical History: Denies: Hx Peritoneal Dialysis Psychiatric Medical History: Reports: Hx Anxiety, Hx Depression Past Surgical History: Reports: Hx Abdominal Surgery - gastric bypass, Hx Cholecystectomy, Hx Hysterectomy, Hx Orthopedic Surgery - carpal tunnel - Immunizations Hx Diphtheria, Pertussis, Tetanus Vaccination: No Review of Systems - Review of Systems -: Yes ROS unobtainable due to patient's medical condition - Patient sleepy and slurring her speech, has no complaints Physical Exam - Vital signs Vitals: Resp Pulse Ox 13 97 04/18/19 18:44 04/18/19 18:44 - Notes Notes: PHYSICAL EXAMINATION: GENERAL: Disheveled, well-nourished and in no acute distress. HEAD: Atraumatic, normocephalic. EYES: Pupils equal round and reactive to light, extraocular movements intact, conjunctiva are normal. ENT: Nares patent, oropharynx clear without exudates. Moist mucous membranes. NECK: Normal range of motion, supple without lymphadenopathy LUNGS: Breath sounds clear to auscultation bilaterally and equal. No wheezes rales or rhonchi. HEART: Regular rate and rhythm without murmurs ABDOMEN: Soft, nontender, nondistended abdomen. No guarding, no rebound. No masses appreciated. Female : deferred Musculoskeletal: Normal range of motion, no pitting or edema. No cyanosis. NEUROLOGICAL: Cranial nerves grossly intact. Normal speech, normal gait. Normal sensory, motor exams PSYCH: Flat affect. SKIN: Warm, Dry, normal turgor, no rashes or lesions noted. Course - Re-evaluation Re-evalutation: Laboratory 04/18/19 04/18/19 18:44 18:44 WBC 10.8 H RBC 4.13 Hgb 11.5 L Hct 35.1 L MCV 85 MCH 27.7 MCHC 32.6 RDW 15.6 H Plt Count 284 Lymph % (Auto) Not Reportable [place] % (Auto) Not Reportable Eos % (Auto) Not Reportable Baso % (Auto) Not Reportable Absolute Neuts (auto) Not Reportable Absolute Lymphs (auto) Not Reportable Absolute Monos (auto) Not Reportable Absolute Eos (auto) Not Reportable Absolute Basos (auto) Not Reportable Total Counted 100 Seg Neutrophils % Not Reportable Seg Neuts % (Manual) 90 H Lymphocytes % (Manual) 7 L Monocytes % (Manual) 3 Eosinophils % (Manual) 0 Basophils % (Manual) 0 Abs Neuts (Manual) 9.7 H Abs Lymphs (Manual) 0.8 Abs Monocytes (Manual) 0.3 Absolute Eos (Manual) 0.0 Abs Basophils (Manual) 0.0 Platelet Comment ADEQUATE Anisocytosis 1+ Sodium 136.9 L Potassium 4.7 Chloride 105 Carbon Dioxide 19 L Anion Gap 13 BUN 14 Creatinine 0.96 Est GFR ( Amer) > 60 Est GFR (MDRD) Non-Af > 60 Glucose 144 H Calcium 9.7 Total Bilirubin 0.3 Direct Bilirubin 0.1 Neonat Total Bilirubin Not Reportable Neonat Direct Bilirubin Not Reportable Neonat Indirect Bili Not Reportable AST 20 ALT 15 Alkaline Phosphatase 59 Total Protein 6.5 Albumin 3.8 Salicylates < 1.0 L Acetaminophen 29 Serum Alcohol < 10 Labs as recorded above, patient discussed with attending physician, Dr. Bentley who recommends placing patient on involuntary commitment order. IVC paperwork executed and placed on chart. Over the course of patient's ED stay she has become more alert, she is now able to articulate that she does not attempt suicide. She is being calm and cooperative, she knows she is on IVC papers pending mental health evaluation in the morning. Nursing staff states that poison control is recommending a repeat acetaminophen level and continue monitoring. As soon as patient's repeat acetaminophen level is back as long as it is within normal limits patient can be medically cleared at that time. - Vital Signs Vital signs: Temp Pulse Resp BP Pulse Ox 18 143/75 H 98 04/18/19 21:01 04/18/19 22:01 04/18/19 23:01 - Laboratory Result Diagrams: 04/18/19 18:44 04/18/19 18:44 Laboratory results interpreted by me: 04/18/19 04/18/19 18:44 18:44 WBC 10.8 H Hgb 11.5 L Hct 35.1 L RDW 15.6 H Seg Neuts % (Manual) 90 H Lymphocytes % (Manual) 7 L Abs Neuts (Manual) 9.7 H Sodium 136.9 L Carbon Dioxide 19 L Glucose 144 H Salicylates < 1.0 L Discharge - Discharge Clinical Impression: Overdose Qualifiers: Encounter type: initial encounter Injury intent: undetermined intent Qualified Code(s): T50.904A - Poisoning by unspecified drugs, medicaments and biological substances, undetermined, initial encounter Polysubstance overdose Qualifiers: Encounter type: initial encounter Injury intent: undetermined intent Qualified Code(s): T50.904A - Poisoning by unspecified drugs, medicaments and biological substances, undetermined, initial encounter Condition: Stable Disposition: PSYCH HOSP/UNIT Referrals: TESFAYE BATES MD [Primary Care Provider] - Follow up as needed
[2019-04-18 19:38] LABS: ACETAMINOPHEN 29 ug/mL (10-30); ALBUMIN 3.8 g/dL (3.5-5.0); ALKALINE PHOSPHATASE 59 U/L (38-126); ANION GAP 13 (5-19); ASPARTATE AMINO TRANSFERASE 20 U/L (14-36); BILIRUBIN,DIRECT 0.1 mg/dL (0.0-0.4); BILIRUBIN,TOTAL 0.3 mg/dL (0.2-1.3); BLOOD UREA NITROGEN 14 mg/dL (7-20); CALCIUM 9.7 mg/dL (8.4-10.2); CARBON DIOXIDE 19 mmol/L (22-30); CHLORIDE 105 mmol/L (98-107); GLUCOSE 144 mg/dL (75-110); POTASSIUM 4.7 mmol/L (3.6-5.0); TOTAL PROTEIN 6.5 g/dL (6.3-8.2)
[2019-04-18 19:41] LABS: ABSOLUTE LYMPHOCYTES# (MANUAL) 0.8 10^3/uL (0.5-4.7); ABSOLUTE MONOCYTES # (MANUAL) 0.3 10^3/uL (0.1-1.4); ALCOHOL < 10 mg/dL (NONE DETECTED); ANISOCYTOSIS 1+; BASOPHILS % (MANUAL) 0 % (0-2); EOSINOPHILS % (MANUAL) 0 % (0-6); LYMPHOCYTES % (MANUAL) 7 % (13-45); MONOCYTES % (MANUAL) 3 % (3-13); SALICYLATE < 1.0 mg/dL (2.0-20.0); SEGMENTED NEUTROPHILS % (MAN) 90 % (42-78); TOTAL CELLS COUNTED 100
[2019-04-18 19:42] LABS: PLATELET COMMENT ADEQUATE
--- NOTE | 2019-04-18 21:26 | EKG REPORT ---
SEVERITY:- ABNORMAL ECG - SINUS RHYTHM LEFT VENTRICULAR HYPERTROPHY 60 CPS INTERFERENCE : Confirmed by: Connor Rich MD 18-Apr-2019 21:25:22
[2019-04-19 06:40] VITALS: BP 120/77
[2019-04-19 10:07] LABS: APPEARANCE,URINE CLOUDY; BILIRUBIN,URINE NEGATIVE (NEGATIVE); COLOR,URINE YELLOW; GLUCOSE, URINE NEGATIVE (NEGATIVE); KETONES,URINE NEGATIVE (NEGATIVE); LEUKOCYTE ESTERASE,URINE NEGATIVE (NEGATIVE); NITRITE,URINE NEGATIVE (NEGATIVE); PROTEIN,URINE NEGATIVE (NEGATIVE); UROBILINOGEN,URINE NEGATIVE mg/dL (<2.0)
[2019-04-19 10:14] LABS: URINE AMPHETAMINES SCREEN NEGATIVE; URINE BARBITURATES SCREEN NEGATIVE; URINE BENZODIAZEPINES SCREEN UNCONFIRMED POSITIVE; URINE COCAINE SCREEN NEGATIVE; URINE MARIJUANA (THC) SCREEN NEGATIVE; URINE METHADONE SCREEN NEGATIVE; URINE PHENCYCLIDINE SCREEN NEGATIVE
--- NOTE | 2019-04-19 12:37 | ER Document Report ---
Doctor's Note Notes: 04/19/19 12:36 S: 53-year-old female was brought into the emergency department last night for possible overdose. She was brought in by her roommate. Roommate thought that patient had taken several narcotics as well as benzos. She was hypersomnolent. She did not report suicidal ideation, hallucinations, HI last night and she continues to state that she does not feel suicidal today. She states that she took medicines for her MS because she had increased pain. She does admit to have a history of depression but states that she has been doing okay. She is requesting to be discharged. Our psych team is attempting to contact her roommate. O: Constitutional: Alert, resting: In no acute distress Cardiac: Regular rate and rhythm. No murmurs rubs or gallops Respiratory: Lungs are clear to auscultation bilaterally. No wheezes rhonchi or rales Abdomen: Soft, nontender, nondistended. Normal bowel sounds Skin: No rash, no diaphoresis spinal stimulator appreciated in the right back, Neuro: Cranial nerves II through XII are intact. No pronator drift. No leg drift. Patient is alert and oriented to person place and time. Psych: Interactive, states she is a little upset that she is still in the emergency department. Denies SI, HI, hallucinations. Denies intentional overuse of medicines. A/P:Patient was staffed by a psych she was on IVC overnight but patient no longer IVC.. She is denying any SI, HI, hallucinations. Discussion of concurrent use of benzos with opioids was performed bedside. Plan to decrease her Xanax and her tizanidine. She does have a psychiatrist who follows with her. psych is awaiting return phone call from her roommate, Lacey. Once Lacey is reached the plan will be for discharge home. Lacey was contacted and she will come and get the patient. Patient agrees with the plan. Urged to return if any worsening symptoms or concerns. She agrees.
--- NOTE | 2019-04-19 13:59 | PSYCHOLOGICAL NOTE ---
Psych Note - Psych Note Date seen by psych provider: 04/19/19 Time seen by psych provider: 07:35 Psych Note: Date seen: 04/19/2019 Time seen by psych: 7:35 Psych Note: Reason for consult: IVC Patient arrived via EMS to ED. Patient is under IVC for suspected overdose. Patients roommate contacted EMS after she observed patient behaving in an intoxicating/sedative manner. Patient reports being unsure what Im here for. Patient states her only concern is a recent MS flare up. Patient reports an increase in depressive symptoms that coincides with recent MS flare up. Patient reports receiving medication management and mental health services from [facility]. Patient denies suicidal ideation/intent. Patient stated she would never do that [suicide gesture]. Patient denied previous mental health hospitalizations. Clinician met with patient after initial encounter for clarification on medical diagnoses and current medication regimen. Patient reported being diagnosed with Multiple Sclerosis in 2013 by a female Doctor in [place], [place]. Patient reported being prescribed Xanax for bad anxiety, however patient reports always having pills left over. Patient also reported being anemic, and being prescribed seizure medication to manage chronic migraines. Patient also has spine stimulator implant for pain management purposes. Patient is alert and oriented to person, place, time and circumstance. Mood is euthymic with congruent affect as evidenced by smiling, laughing, and engaging with clinician. Patient denies suicidal and homicidal ideation. Delusions are absent and behavior is congruent with an intact reality based presentation (i.e.: organized and linear through processes). Patient denies auditory and visual hallucinations. Eye contact is appropriate. Conversational speech is within normal rate, tone, and prosody. Intellectual ability appears to be within average range. Attention and concentration are good. Insight, judgment and impulse control are currently good. DSM-5 Diagnosis: Medication recommendations per [facility] contracted psychiatrist Dr. Amena MD are as follows: Only take Tizanidine as needed, but NO MORE than 2x day Decrease Xanax to 0.25MG as needed, but no more than 2x day Impression/Plan: Patient is cleared from acute psychiatric services. Patient does not meet IVC criteria per [place] GS 122C. At this time, patient is demonstrating strong insight and judgment into her current situation. It is recommended that the patient follow up with Psychiatrist and Neurologist for medication reconciliation and management, and follow up with her regular mental health provider at [facility]. Patient also identified roommate, Lacey Lunsford, and a friend from [employer] as a strong support system and individuals who will be assisting patient in her plan of care. Patient was advised of the synergistic effects between benzodiazepines, narcotics, and muscle relaxers. Patient was further advised that some of the possible side effects of current medications are increased confusion and memory loss. Patient was encouraged to purchase an electronic pill dispenser to assist with medication management during MS flare- ups. Patient demonstrates strong insight and judgment in her own plan of care and development. Patient was provided with community resources. Medication recommendation have been provided. Dr. Brand was consulted on the care and management of this patient; attending physician is in agreement with recommendations and disposition.
== END 2019-04-19 14:54 | disposition home or self-care (01) ==
LOC: ER 18:36
DX: T50.904A Poisoning by unspecified drugs, medicaments and biological substances, undetermined, initial encounter (principal); R41.82 Altered mental status, unspecified; F17.200 Nicotine dependence, unspecified, uncomplicated; E11.9 Type 2 diabetes mellitus without complications; Z98.84 Bariatric surgery status; Z90.49 Acquired absence of other specified parts of digestive tract; Z90.710 Acquired absence of both cervix and uterus
CPT/HCPCS: 36415; 80053; 80307; 81001; 85025; 93005; 93010; 99285

== ENCOUNTER → 2019-05-28 | Outpatient (CLI) | payer MEDICARE, MEDICAID ==
[2019-05-28 09:46] LABS: ABSOLUTE EOSINOPHILS # (AUTO) 0.5 10^3/uL (0.0-0.6); ABSOLUTE LYMPHOCYTES (AUTO) 0.5 10^3/uL (0.5-4.7); ABSOLUTE MONOCYTES (AUTO) 0.5 10^3/uL (0.1-1.4); ABSOLUTE NEUT (AUTO) 2.2 10^3/uL (1.7-8.2); BASOPHILS % (AUTO) 0.6 % (0-2); EOSINOPHILS % (AUTO) 12.7 % (0-6); HEMATOCRIT 36.8 % (36.0-47.0); HEMOGLOBIN 12.2 g/dL (12.0-15.5); LYMPHOCYTES % (AUTO) 14.2 % (13-45); MEAN CORPUSCULAR HGB CONC 33.3 g/dL (32.0-36.0); MEAN CORPUSCULAR VOLUME 84 fl (80-97); MONOCYTES % (AUTO) 13.7 % (3-13); PLATELET COUNT 307 10^3/uL (150-450); RED BLOOD COUNT 4.38 10^6/uL (3.72-5.28); RED CELL DISTRIBUTION WIDTH 15.7 % (11.5-14.0); SEGMENTED NEUTROPHILS % (AUTO) 58.8 % (42-78); TOTAL CELLS COUNTED % (AUTO) 100 %; WHITE BLOOD COUNT 3.8 10^3/uL (4.0-10.5)
[2019-05-28 09:52] LABS: HEMATOCRIT 36.8 % (36.0-47.0); HEMOGLOBIN 12.2 g/dL (12.0-15.5); MEAN CORPUSCULAR HGB CONC 33.3 g/dL (32.0-36.0); MEAN CORPUSCULAR VOLUME 84 fl (80-97); PLATELET COUNT 307 10^3/uL (150-450); RED BLOOD COUNT 4.38 10^6/uL (3.72-5.28); RED CELL DISTRIBUTION WIDTH 15.7 % (11.5-14.0); WHITE BLOOD COUNT 3.8 10^3/uL (4.0-10.5)
[2019-05-28 10:04] LABS: CHOLESTEROL 215.18 mg/dL (0-200); TRIGLYCERIDES 158 mg/dL (<150)
[2019-05-28 10:09] LABS: IRON 39.5 ug/dL (37-170)
[2019-05-28 10:16] LABS: DIRECT LDL 86 mg/dL (<100)
[2019-05-28 10:28] LABS: VLDL CHOLESTEROL 31.6 mg/dL (10-31)
[2019-05-28 11:21] LABS: FOLATE > 20.00 ng/mL (>2.76)
== END ==
LOC: OD 08:47
PROVIDERS: ATTEND Family Medicine Geriatric Medicine
DX: G35 Multiple sclerosis (principal); D64.9 Anemia, unspecified; E78.5 Hyperlipidemia, unspecified; E11.9 Type 2 diabetes mellitus without complications; Z79.899 Other long term (current) drug therapy
CPT/HCPCS: 36415; 80061; 82607; 82728; 82746; 83540; 84460; 85025; 86705

== ENCOUNTER → 2019-09-30 | Outpatient (CLI) | payer MEDICARE, MEDICAID ==
[2019-09-30 11:50] LABS: ABSOLUTE EOSINOPHILS # (AUTO) 0.3 10^3/uL (0.0-0.6); ABSOLUTE LYMPHOCYTES (AUTO) 0.8 10^3/uL (0.5-4.7); ABSOLUTE MONOCYTES (AUTO) 0.6 10^3/uL (0.1-1.4); ABSOLUTE NEUT (AUTO) 2.8 10^3/uL (1.7-8.2); BASOPHILS % (AUTO) 0.6 % (0-2); EOSINOPHILS % (AUTO) 6.4 % (0-6); HEMATOCRIT 38.8 % (36.0-47.0); HEMOGLOBIN 13.2 g/dL (12.0-15.5); LYMPHOCYTES % (AUTO) 17.1 % (13-45); MEAN CORPUSCULAR VOLUME 85 fl (80-97); MONOCYTES % (AUTO) 13.1 % (3-13); PLATELET COUNT 260 10^3/uL (150-450); RED BLOOD COUNT 4.55 10^6/uL (3.72-5.28); RED CELL DISTRIBUTION WIDTH 15.4 % (11.5-14.0); SEGMENTED NEUTROPHILS % (AUTO) 62.8 % (42-78); TOTAL CELLS COUNTED % (AUTO) 100 %; WHITE BLOOD COUNT 4.4 10^3/uL (4.0-10.5)
[2019-09-30 12:09] LABS: ANION GAP 7 (5-19); BLOOD UREA NITROGEN 14 mg/dL (7-20); CALCIUM 9.2 mg/dL (8.4-10.2); CARBON DIOXIDE 26 mmol/L (22-30); CHLORIDE 106 mmol/L (98-107); CHOLESTEROL 158.94 mg/dL (0-200); GLUCOSE 88 mg/dL (75-110); POTASSIUM 4.8 mmol/L (3.6-5.0); TRIGLYCERIDES 85 mg/dL (<150)
[2019-09-30 12:20] LABS: DIRECT LDL 60 mg/dL (<100)
[2019-10-01 07:37] LABS: MICROALBUMIN URINE 4.5 ug/mL (Not Estab.)
== END ==
LOC: OD 10:23
PROVIDERS: ATTEND Family Medicine Geriatric Medicine
DX: E11.9 Type 2 diabetes mellitus without complications (principal); I10 Essential (primary) hypertension; E78.5 Hyperlipidemia, unspecified; E03.9 Hypothyroidism, unspecified; Z79.899 Other long term (current) drug therapy
CPT/HCPCS: 36415; 80048; 80061; 82043; 82570; 83036; 84443; 84460; 85025

== ENCOUNTER → 2020-05-23 | Outpatient (CLI) | payer MEDICARE, MEDICAID ==
[2020-05-23 08:44] LABS: ABSOLUTE EOSINOPHILS # (AUTO) 0.4 10^3/uL (0.0-0.6); ABSOLUTE LYMPHOCYTES (AUTO) 1.3 10^3/uL (0.5-4.7); ABSOLUTE MONOCYTES (AUTO) 0.5 10^3/uL (0.1-1.4); ABSOLUTE NEUT (AUTO) 5.2 10^3/uL (1.7-8.2); BASOPHILS % (AUTO) 0.6 % (0-2); EOSINOPHILS % (AUTO) 5.6 % (0-6); HEMATOCRIT 37.1 % (36.0-47.0); HEMOGLOBIN 12.1 g/dL (12.0-15.5); LYMPHOCYTES % (AUTO) 17.8 % (13-45); MEAN CORPUSCULAR HEMOGLOBIN 26.4 pg (27.0-33.4); MEAN CORPUSCULAR HGB CONC 32.8 g/dL (32.0-36.0); MEAN CORPUSCULAR VOLUME 81 fl (80-97); MONOCYTES % (AUTO) 7.1 % (3-13); PLATELET COUNT 330 10^3/uL (150-450); RED CELL DISTRIBUTION WIDTH 17.1 % (11.5-14.0); SEGMENTED NEUTROPHILS % (AUTO) 68.9 % (42-78); TOTAL CELLS COUNTED % (AUTO) 100 %; WHITE BLOOD COUNT 7.6 10^3/uL (4.0-10.5)
[2020-05-23 09:05] LABS: ANION GAP 10 (5-19); BLOOD UREA NITROGEN 11 mg/dL (7-20); CALCIUM 9.5 mg/dL (8.4-10.2); CARBON DIOXIDE 23 mmol/L (22-30); CHLORIDE 109 mmol/L (98-107); CHOLESTEROL 174.99 mg/dL (0-200); GLUCOSE 106 mg/dL (75-110); POTASSIUM 4.3 mmol/L (3.6-5.0); TRIGLYCERIDES 117 mg/dL (<150)
[2020-05-23 09:19] LABS: DIRECT LDL 64 mg/dL (<100)
[2020-05-24 11:37] LABS: MICROALBUMIN URINE 4.7 ug/mL (Not Estab.)
== END ==
LOC: OD 07:35
PROVIDERS: ATTEND Family Medicine Geriatric Medicine
DX: E11.9 Type 2 diabetes mellitus without complications (principal); E78.5 Hyperlipidemia, unspecified; E87.6 Hypokalemia; E03.9 Hypothyroidism, unspecified; Z79.899 Other long term (current) drug therapy
CPT/HCPCS: 36415; 80048; 80061; 82043; 82570; 83036; 83735; 84443; 84460; 85025

== ENCOUNTER → 2020-07-15 | Outpatient (CLI) | payer MEDICARE, MEDICAID ==
[2020-07-15 10:35] LABS: HEMATOCRIT 37.5 % (36.0-47.0); HEMOGLOBIN 11.9 g/dL (12.0-15.5); MEAN CORPUSCULAR HGB CONC 31.9 g/dL (32.0-36.0); MEAN CORPUSCULAR VOLUME 78 fl (80-97); PLATELET COUNT 313 10^3/uL (150-450); RED BLOOD COUNT 4.78 10^6/uL (3.72-5.28); RED CELL DISTRIBUTION WIDTH 16.9 % (11.5-14.0); WHITE BLOOD COUNT 7.6 10^3/uL (4.0-10.5)
[2020-07-15 11:03] LABS: ALBUMIN 4.3 g/dL (3.5-5.0); ALKALINE PHOSPHATASE 108 U/L (38-126); ANION GAP 8 (5-19); ASPARTATE AMINO TRANSFERASE 25 U/L (14-36); BILIRUBIN,DIRECT 0.2 mg/dL (0.0-0.4); BILIRUBIN,TOTAL 0.7 mg/dL (0.2-1.3); BLOOD UREA NITROGEN 10 mg/dL (7-20); CALCIUM 9.8 mg/dL (8.4-10.2); CARBON DIOXIDE 26 mmol/L (22-30); CHLORIDE 105 mmol/L (98-107); GLUCOSE 109 mg/dL (75-110); POTASSIUM 4.7 mmol/L (3.6-5.0); TOTAL PROTEIN 7.3 g/dL (6.3-8.2)
== END ==
LOC: OD 09:32
PROVIDERS: ATTEND Psychiatry & Neurology Neurology
DX: G43.009 Migraine without aura, not intractable, without status migrainosus (principal); Z79.899 Other long term (current) drug therapy
CPT/HCPCS: 36415; 80053; 82306; 82607; 83921; 85027; 87798